=== PATIENT | male | born 1935 | race Caucasian/White ===

== ENCOUNTER 2022-01-28 10:19 | Outpatient (CLI) | payer MEDICARE, SELFPAY ==
[2022-01-28 15:49] LABS: Chloride* 103 mmol/L (96-114); Potassium* 4.7 mmol/L (3.6-5.1); Sodium* 137 mmol/L (135-149)
[2022-01-28 15:51] LABS: Alanine Aminotransferase* 27 U/L (4-50); Carbon Dioxide* 25 mmol/L (20-32); Cholesterol* 153 mg/dL (90-199); Creatinine* 1.3 mg/dL (0.5-1.5); Estimated Glomerular Filt Rate 54 ml/min
[2022-01-28 15:52] LABS: Blood Urea Nitrogen* 46 mg/dL (7-30); Glucose* 126 mg/dL (60-115); HDL Cholesterol* 38 mg/dL (>=40); LDL Cholesterol Calculated 95 mg/dL (<100); Triglycerides* 100 mg/dL (40-149)
== END 2022-01-28 10:20 | disposition home or self-care (01) ==
PROVIDERS: PCP Family Medicine; Visit Provider Family Medicine
DX: I10 Essential (primary) hypertension (principal); E11.9 Type 2 diabetes mellitus without complications; M10.9 Gout, unspecified
CPT/HCPCS: 80048; 80061; 84460

== ENCOUNTER 2022-02-14 10:43 | Outpatient (CLI) | payer MEDICARE, SELFPAY | END 2022-02-14 10:44 | disposition home or self-care (01) | PROVIDERS: PCP Family Medicine; Visit Provider Family Medicine | DX: Z95.2 Presence of prosthetic heart valve (principal); I34.0 Nonrheumatic mitral (valve) insufficiency | CPT/HCPCS: 93306 ==

== ENCOUNTER 2022-10-28 07:30 | Day surgery (SDC) | payer MEDICARE, SELFPAY ==
[2022-10-28] MEDS: SODIUM CHLORIDE 0.9 % (FLUSH) 10 ML SYRINGE IVF (07:50)
[2022-10-28] MEDS: LACTATED RINGERS 1000 ML 1,000 ML 100 ML IV (07:50)
[2022-10-28 08:02] VITALS: BP 152/91; PULSE 55; RESP 16; TEMP 36.9; O2SAT 97
[2022-10-28 08:06] VITALS: BMI 29.2
--- NOTE | 2022-10-28 08:46 | W.ANESCHARGE ---
Anesthesia Charges Start Date/Time Anesthesia Start Date: 10/28/22 Anesthesia Start Time: 08:59 Stop Date/Time Anesthesia Stop Date: 10/28/22 Anesthesia Stop Time: 10:02 Summary Extremes of Age - Over 70 or under 1: MDA
--- NOTE | 2022-10-28 08:52 | PM.GSPRC ---
Operative Note Date of procedure: 10/28/22 Pre-op diagnosis: 1. Top of the scalp lesion suspicious for basal cell carcinoma. Post-op diagnosis: Same Type of Procedure: 1. Excision of top of the scalp skin lesion. Indications: 87-year-old male was seen in clinic for evaluation of an enlarging top of the scalp skin lesion that was noticed 6 months ago. It has been increasing in size but was not painful. There was no drainage. 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 On clinical exam on the top of the left scalp there was around raised skin lesion that was approximately 1 cm in diameter. The skin scalp had limited laxity. Given patient's clinical history and enlarging nature of this lesion, this was suspicious for skin cancer. Excision in the operating room was recommended. The procedure was discussed in detail. The risks associated procedure including infection, bleeding, and lesion recurrence were all discussed with the patient, and he agreed to proceed. Procedure Description: After discussing the risks and benefits of the procedure, the patient signed informed consent.? The operative site was marked and the patient was brought to the operating room and placed on the operating table in supine position.? Care was taken to pad the patient's pressure points.?? The patient was then sedated by anesthesia.?? The operative site was then prepped and draped in the usual sterile fashion.? A time-out was then performed. The lesion was marked with a marking pen and was measuring 1.5 cm in diameter. Local anesthetic was injected at the surgical site. A vertical elliptical incision was made around the skin lesion with a scalpel. Subcutaneous tissue and dermis were dissected with cautery down to the galea. The ellipse of skin containing the suspicious lesion was excised. The ellipse of skin was measuring 8.5 x 2 cm. This was marked with a single stitch anterior and double lateral and sent to pathology. The skin flaps were developed laterally and medially with cautery. The incision was then closed in layers with interrupted 2-0 and 3-0 Vicryl sutures. The length of the incision was 8.5 cm. There was some tension in the center of the incision. The skin of the incision was then closed with a running 4-0 Monocryl stitch. In the center of the incision where there was tension, I placed 2 interrupted vertical mattress sutures using nylon. Dermabond was placed over the areas of closed skin without nylon sutures. Bacitracin was placed over the center of the incision and that was covered with Mepilex. ? The patient was then woken and transported to the recovery area in stable condition. ? The patient tolerated the procedure well. Findings: Minimal tension in the center of the incision reinforced with nylon sutures. Anesthesia: MAC and local Surgeon: Hali Hanson MD Estimated blood loss (mL): 7 Additional Specimen Information: 1. Top of the scalp skin lesion. Condition: stable Disposition: same day
[2022-10-28] MEDS: CEFAZOLIN 2 GM INJ IVP (09:03)
[2022-10-28] MEDS: BUPIVACAINE 0.5% 30 ML 3.5 ML INJECTION (09:19)
[2022-10-28] MEDS: BACITRACIN OINTMENT BULK TUBE 1 APPLIC TOPICAL (09:49)
--- NOTE | 2022-10-28 09:52 | SUR.OPER ---
PATIENT QUESTIONS ANSWERED SATISFACTORILY PREOPERATIVELY WITH AN OTORHINOLARYNGOLOGIST.? PATIENT BROUGHT TO OR #4 PER CART.? Patient positioned supine on OR #4 bed.? The perioperative?team supported arms bilaterally on arm boards.? Final approval of positioning by surgeon.?
[2022-10-28 09:59] VITALS: BP 127/78; PULSE 56; RESP 16; TEMP 36.3; O2SAT 94
--- NOTE | 2022-10-28 10:04 | P.ANES_ITS ---
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
[2022-10-28 10:15] VITALS: BP 148/84; PULSE 49; RESP 16; O2SAT 96
[2022-10-28 10:30] VITALS: BP 153/84; PULSE 50; RESP 16; O2SAT 96
[2022-10-28 11:17] VITALS: BP 159/85; PULSE 50; RESP 16; O2SAT 96
== END 2022-10-28 11:08 | disposition home or self-care (01) ==
LOC: OR 07:30
PROVIDERS: PCP Family Medicine; Visit Provider Surgery
PROC: (CPT 11626; principal; 2022-10-28 08:30)
DX: C44.41 Basal cell carcinoma of skin of scalp and neck (principal)
CPT/HCPCS: 11626; 12034; 00300; 82962; 88305; 99100; J0690; J2250; J2704; J3490; J7120

== ENCOUNTER 2023-04-06 08:44 | Outpatient (CLI) | payer MEDICARE, SELFPAY | END 2023-04-06 08:45 | disposition home or self-care (01) | LOC: NFLDREF 04-10 11:52 | PROVIDERS: PCP Family Medicine; Referring Provider Family Medicine; Visit Provider Family Medicine | DX: I10 Essential (primary) hypertension (principal); E11.9 Type 2 diabetes mellitus without complications; M10.9 Gout, unspecified | CPT/HCPCS: 80048; 80061; 84550; 85025 ==

== ENCOUNTER 2024-03-23 09:13 | Outpatient (CLI) | payer MEDICARE, SELFPAY ==
--- OUTSIDE RECORDS SUMMARY | 2024-03-23 09:16 | XMS_ITS | Clinical Summary ---
Author Organization [facility] Address [address] [place] [address] Care Team Providers Care Automatic Washer Mechanic Name Role Phone Elsewhere, Pcp Primary Care Provider Unavailabl e Source Comments Patient records contain information from all sites at [facility]. For routine questions regarding patient records, call [phone] during business hours, M-F 8:00 AM - 5:00 PM Central Time. Record requests for emergency care only can be directed to [phone] at any time.[facility] Allergies No known active allergies Medications * This document contains information received from the source organization and may not represent a complete record from that organization. allopurinol (ZYLOPRIM) 300 mg tablet Take 300 mg by mouth daily. 8 Active tamsulosin (FLOMAX) 0.4 mg 24 hr capsule Take 0.4 mg by mouth daily. 8 Active hydroCHLOROthi azide (HYDRODIURIL) 25 mg tablet Take 25 mg by mouth daily. 1 Active glimepiride (AMARYL) 2 mg tablet Take 2 mg by mouth daily with breakfast. 2 Active metoprolol tartrate (LOPRESSOR) 100 mg tablet 2 (two) times a day. 2 Active OneTouch Verio test strips 3 Active OneTouch Delica Plus Lancet 30 gauge misc 3 Active OneTouch Verio Flex meter [facility] 4 Active tobramycin-dex AMETHasone (Tobradex) 0.3-0.1 % ophthalmic suspension Administer 1 drop into the right eye 4 (four) times a day. 4 Active fluticasone propionate (FLONASE) 50 mcg/actuation nasal spray Administer 2 sprays into each nostril daily. 3 03/11/20 Discontinu ed(Therapy completed) neomycin-polym yxin B-dexameth (MAXITROL) 3.5 mg/g-10,000 unit/g-0.1 % ophthalmic ointment Apply 1 inch to right eye at bedtime. Started 05/15/22 2 03/11/20 Discontinu ed(Therapy completed) gabapentin (NEURONTIN) 100 mg capsule TAKE 1 CAPSULE(100 MG) BY MOUTH TWICE DAILY. BEGIN WITH 1 PILL DAILY FOR 3 DAYS THEN. INCREASE TO 2 TIMES DAILY 60 capsule 3 03/11/20 Discontinu ed(Therapy completed) cephalexin (KEFLEX) 500 mg capsule Take 1 capsule (500 mg total) by mouth every 6 (six) hours. 20 capsule 3 03/11/20 Discontinu ed(Therapy completed) traMADoL (ULTRAM) 50 mg tabletIndicati ons:Acute Pain Take 1 tablet (50 mg total) by mouth every 6 (six) hours as needed for pain for up to 10 doses Indications: Acute Pain. 8 tablet 3 03/11/20 Discontinu ed(Therapy completed) doxycycline (ADOXA) 50 mg tablet TAKE ONE TABLET BY MOUTH TWICE A DAY FOR 2 MONTHS 3 03/11/20 Discontinu ed(Therapy completed) benzonatate (Tessalon Perles) 100 mg capsule Take 200 mg by mouth every 8 (eight) hours. 03/11/20 Discontinu ed(Therapy completed) predniSONE (Deltasone) 20 mg tablet Take 20 mg by mouth daily. 03/11/20 Discontinu ed(Therapy completed) cefadroxil (Duricef) 500 mg capsule Take 1 capsule (500 mg total) by mouth 2 (two) times a day for 5 days. 10 capsule 4 03/16/20 Hospital, Clinic, or Other Facility Administered Medication Ordered Dose Route Frequency Start Date End Date Status lidocaine-EPINEPHrine 1%-1:200,000 injection 2-50 mL (Xylocaine w/epi)Indications:Malignant Neoplasm Of Nose Basal Cell 2 - 50 mL inj As needed 03/11/2024 03/11/20 24 Ended [id number] PHrine 0.25%-1%-1:200,000 injection 2-25 mLIndications:Malignant Neoplasm Of Nose Basal Cell 2 - 25 mL inj As needed 03/11/2024 03/11/20 24 Ended lidocaine-sodium bicarbonate (buffered) 0.9%-0.84% injection 1 mL 1 mL Ifil Once 03/11/2024 03/11/2024 Ended Active Problems Problem Noted Date Diagnosed Date 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 Keratosis Actinic (Primary Dx) Discharge Disposition: Home or Self Care 03/11/2024 8:00 AM CDT Procedure visit Department of Dermatology in [address] [phone] Jesús Bower M.D., M.S. Malignant Neoplasm Of Nose Basal Cell Discharge Disposition: Home or Self Care 03/11/2024 Ancillary Procedure Department of Dermatology 01/06/2024 Orders Only Department of Dermatology in [address] [phone] Geetha Martines M.D. Malignant Neoplasm Of Nose Basal Cell (Primary Dx) 01/05/2024 Clinical Communication Department of Dermatology in [address] [phone] Geetha Martines M.D. 01/04/2024 8:55 AM CDT Ancillary Procedure Department of Dermatology 01/04/2024 8:30 AM CDT Office Visit Department of Dermatology in [address] [place] [phone] Geetha Martines M.D. Keratosis Actinic (Primary Dx); Tumor Skin Uncertain Behavior; Nevi Multiple; Keratosis Seborrheic Discharge Disposition: Home or Self Care from Last 3 Months Family History Medical History Relation Name Comments Basal cell carcinoma Brother Kyle Zimmerman Melanoma Brother Kyle Zimmerman Skin cancer Brother Kyle Zimmerman constant care Coronary artery disease Father Sunny Dementia Mother Rosie Relation Name Status Comments Brother Kyle Zimmerman Father Sunny Mother Rosie Social History Tobacco Use Types Packs/Day Years Used Date Smoking Tobacco: Former Cigarettes 0.3 14.5 0 01/16/1957 - 07/04/1971 Smokeless Tobacco: Never Tobacco Cessation:Counseling Given: Not Answered Alcohol Use Standard Drinks/Week Comments Yes 0 (1 standard drink = 0.6 oz pure alcohol) occasional; 1 drink Q 2 months LAST: 04/2022 Social Connection and Isolat ion Panel [NHANES] Answer Date Recorded In a typical week, how many times do you talk on the phone with family, friends, or neighbors? More than three times a week 05/05/2022 How often do you get togethe r with friends or relatives? Twice a week 05/05/2022 How often do you attend chur ch or buddhist services? More than 4 times per year 05/05/2022 Do you belong to any clubs o r organizations such as islam groups, unions, fraternal or athletic groups, or school groups? No 05/05/2022 How often do you attend meet ings of the clubs or organizations you belong to? 1 to 4 times per year 05/05/2022 Marital Status Not on file 05/05/2022 AUDIT-C Answer Date Recorded Q1: How often do you have a drink containing alcohol? Monthly or less 05/05/2022 Q2: How many drinks containi ng alcohol do you have on a typical day when you are drinking? Patient does not drink Frequency of Binge Drinking Not on file 04/17 Overall Financial Resource Strain (CARDIA) Answe r Date Recorded How hard is it for you to pa y for the very basics like food, housing, medical care, and heating? Not hard at all 10/29/2020 [place] [facility] - Occupational Stress Questionnaire Answer Date Recorded Do you feel stress - tense, restless, nervous, or anxious, or unable to sleep at night because your mind is troubled all the time - these days? Not at all 10/29/2020 Exercise Vital Sign Answer Date Recorde d On average, how many days pe r week do you engage in moderate to strenuous exercise (like a brisk walk)? 4 days 05/05/2022 On average, how many minutes do you engage in exercise at this level? 40 min 05/05/2022 Hunger Vital Sign Answer Date Recorded Within the past 12 months, y ou worried that your food would run out before you got the money to buy more. Never true 10/30/19 21 Within the past 12 months, t he food you bought just didn't last and you didn't have money to get more. Never true 10/29/2020 PRAPARE - Transportation Answer Date Re corded In the past 12 months, has l ack of transportation kept you from medical appointments or from getting medications? No 04/17 In the past 12 months, has l ack of transportation kept you from meetings, work, or from getting things needed for daily living? No 05/05/2022 Housing Stability Vital Sign Answer Aaron e Recorded In the last 12 months, was t here a time when you were not able to pay the mortgage or rent on time? No 05/05/2022 In the last 12 months, how many places have you lived? 2 05/05/2022 In the last 12 months, was t here a time when you did not have a steady place to sleep or slept in a senior living (including now)? No 05/05/2022 Nutrition Answer Date Recorded On average, how many serving s of fruits and vegetables do you eat per day (serving size is equal to 1 cup or approximately the size of a tennis ball)? 0-1 05/05/2022 Dental Answer Date Recorded Dental: Regular Dentist Yes 05/05/20 Employment Answer Date Recorded Employment status Retired 05/05/2022 Education Answer Date Recorded What is the highest level of school you have completed or the highest degree you have received? Master's degree (e.g., MA, MS, uMmtaz, MEd, CHEMICAL CELL CHANGER, SABA) 09/27/2019 Sex and Gender Information Value Date Recorded Sex Assigned at Male 09/18/2018 8:37 AM CDT Legal Sex Male 10:09 PM PHOTO TECH Gender Identity Male 09/18/2018 8:37 AM CDT Sexual Orientation Straight 09/18/2018 8: 37 AM CDT Last Filed Vital Signs Vital Sign Reading Time Taken Comments Blood Pressure 139/80 03/11/2024 8:10 AM CDT Pulse 64 03/11/2024 8:10 AM CDT Temperature 36 ??C (96.8 ??F) 07/09/2022 8:31 AM MST Respiratory Rate 17 07/09/2022 8:31 AM MST Oxygen Saturation 96% 07/09/2022 8:31 AM MST Inhaled Oxygen Concentration - - Weight 92.7 kg (204 lb 5.9 oz) 07/09/2022 5:44 A M MST Height 178 cm (5' 10.08) 07/09/2022 5:44 AM MST Body Mass Index 29.26 07/09/2022 5:44 AM MST Plan of Treatment Upcoming Encounters Date Type Department Care Team (Late st Contact Info) Description 09/13/2024 1:45 PM CDT Office Visit Department of Dermatology in [address] [phone] Geetha Martines M.D. [address] [place] [phone] Discharge Disposition: Home or Self Care Health Maintenance Due Date Last Done Comments Diabetic Office Visit with Foot Exam 1935 Urine Albumin 1935 Hepatitis B Vaccines (1 of 3 - Risk 3-dose series) 1997 RSV vaccine - (32-36 weeks) or 60+ years (1 - 1-dose 75+ series) 2012 Hemoglobin A1C 11/05/2022 05/07/2022 Creatinine Level (Kidney Function Test) 05/07/2023 05/07/2022 Depression Screening (Annual PHQ-2) 05/18/2023 Fall Risk Screen (Annual) 05/18/2023 COVID-19 Vaccine ( season) 2024 04/24/2021, 06/29/2020, 06/08/2020 Influenza Vaccine (#1) 2024 03/05/2009, 2008 Dilated Eye Exam 07/08/2024 07/08/2023 DTaP,Tdap,and Td Vaccines (3 - Td or Tdap) 02/05/2032 02/04/2022, 05/01/2021, 05/27/2010 Pneumococcal vaccine (65+ years) Completed 11/30/2015, 03/05/2009 Zoster Vaccines Completed 04/14/2022, 01/17, 05/01/2021, Additional history exists HPV Vaccines Aged Out No longer eligi ble based on patient's age to complete this topic IPV Vaccines Aged Out No longer eligi ble based on patient's age to complete this topic Medical Devices Implanted Type Area Staff Anesthesiologist Device Identifier Shelf Expiration Date Model / Serial / Lot Avr Cardiac Valve Prosthesis Heart Ocular Lens-B/L Ocular Lens Bilateral : Eye Procedures Procedure Name Priority Date/Time Associated Diagnosis Comments [facility] 1-4 SITES Routine 03/11/2024 8: 00 AM CDT Malignant Neoplasm Of Nose Basal Cell DERMATOLOGY IMAGE EXAM Routine 12:00 AM CDT DERMATOLOGY IMAGE EXAM Routine 8:55 AM CDT DERMATOPATHOLOGY Routine 01/04/2024 8:49 AM CDT Tumor Skin Uncertain Behavior HEMOGLOBIN A1C, B Routine 05/07/2022 9:4 3 AM MST Carpal Tunnel Syndrome Bilateral BASIC METABOLIC PANEL, S/P Routine 05/07/2022 9:43 AM MST Carpal Tunnel Syndrome Bilateral from Last 3 Months or Most Recently Relevant to Health Maintenance Results * [facility] 1-4 sites (03/11/2024 8:00 AM CDT) Narrative Jesús Bower M.D., M.S. - 03/11/2024 8:00 AM CDT Guerline Ambriz M.D. ? 03/11/2024 ??2:24 PM PREOP INDICATION: REMOVAL. Date of Surgery: 03/11/2024 Surgeon: Jesús Bower M.D. Procurement Coordinator: Guerline Ambriz M.D. Location: [place] ?? Bldg:GO ?? Floor:16 ?? Room:[facility] Visit Type: Outpatient PostOp Diagnosis: Basal Cell Carcinoma, Nodular Anatomic Location: ??Left nasal alar rim Preoperative size: ??1.0 x 0.7 cm [facility] number: ??[id number] Indication(s) for Mohs Micrographic Surgery: anatomic location where tissue conservation is critical Procedure(s): Mohs micrographic surgery with full-thickness skin graft closure PROCEDURAL PAUSE Prior to the procedure, final verification of the patient identity and correct marked surgical site was performed. Procedural pause conducted to verify: correct patient identity, procedure to be performed and as applicable, correct side and site, correct patient position, and availability of implants, special equipment or special requirements. INFORMED CONSENT Discussed the risks, benefits, alternatives, and the necessity of other members of the healthcare team participating in the procedure. ??All questions answered and consent given. PATIENT EDUCATION Ready to learn, no apparent learning barriers were identified; learning preferences include listening. ??Explained diagnosis and treatment plan; patient expressed understanding of the content. Preoperative medications: None The anesthesia used was 1% lidocaine and 0.25% bupivacaine with 1:200,000 epinephrine. ??The skin was prepped in a sterile fashion with Hibiclens. Basal Cell Carcinoma was noted in stage 1 which required an additional stage, stage 2 was clear of tumor. Histologic tumor-free margins were obtained in 2 stages (1; 1 blocks) by standard Mohs micrographic techniques with the Mohs surgeon performing both the surgery and pathology. The final defect depth was down to level of: fibrofatty tissue. Postoperative size: ??1.2 x 0.9 cm. Anesthesia with 1% lidocaine with 1:200,000 epinephrine and another sterile prep were performed. ??To avoid anatomical distortion, a template was made of the defect, and a full-thickness skin graft was carefully planned and harvested from the right conchal bowl. ??The graft was trimmed to fit the defect. ??After hemostasis was obtained with electrocoagulation, the graft was sutured into place with 5-0 fast gut skin sutures skin sutures. ?? The donor area was allowed to heal by secondary intention. ??Final graft size: ??1.3 x 1.0 cm. ??Estimated blood loss: Minimal. ??Complications: None. ??Wound care: Routine. Postoperative medications: Antibiotics - Duricef 500 mg BID x 5 days us Geetha Martines M.D. DERM PROCEDURE ORDERABLES Fi nal Result * nose, left ala 23 Mohs micrographic surgery-Dermatology Image Exam (03/11/2024 12:00 AM CDT) Only the most recent of2 resultswithin the time period is included. Narrative IIWY - 03/11/2024 3:01 PM CDT This order has been created and auto-finalized to support the import of images acquired without order. The clinical documentation to support these images can be found on the encounter that produced images. us Provider Not In System IMG NON RAD IMAGING PROCE MIRA Final Result [facility] NA * Dermatopathology (01/04/2024 8:49 AM CDT) 01/05/2024 11:13 AM CDT ECLR Report Electronically Signed By Josh Cabral M.D. I verify that I have examined all relevant slides/materi als for the specimen(s) and rendered or confirmed the diagnosis. 01/05/2024 11:13 AM CDT ECLR Gross Description Received labeled nose above left nasal alar rim is a 0.7 cm in diameter and less than 0.1 cm in thickness disc-shaped portion of skin.There is a diffusely roughened area identified on the skin surface. ??The specimen is bisected. All submitted in cassette A1. ??[id number] 01/05/2024 11:13 AM CDT ECLR Specimen Source Above left nasal alar rim shave biopsy 01/05/2024 11:13 AM CDT ECLR Clinical Information R/O BCC vs irritated SK 01/05/2024 11:13 AM CDT ECLR Interpretation FINAL DIAGNOSIS Skin, above left nasal alar rim, shave biopsy: ??Basal cell carcinoma, nodular type. Digital imaging was used in the diagnostic assessment of this case. 01/05/2024 11:13 AM CDT ECLR Skin (Nose.) 01/04/2024 8:49 AM CDT Geetha Martines M.D. LAB PATH DERM ORDERABLES Fin al Result Performing Organization Address City/[facility]/[place] Co de Phone Number [facility] [address] [place] [id number], [facility] ECLR [address] [place] [phone] * (ABNORMAL) Hemoglobin A1c (05/07/2022 9:43 AM [facility]) Hemoglobin A1c, B 6.4(H) 4.2 - 5.6 % 05/07/2022 10:24 AM [facility] Comment: Hemoglobin A1c values of 5.7-6.4 percent indicate an increased risk for developing diabetes mellitus. In diabetic patients, HbA1c goals should be discussed with healthcare provider. Blood (Blood, Venous) 05/07/2022 9:43 AM [facility] 05/07/2022 10:08 AM [facility] Bennett Denise M.D. LAB BLOOD ADD-ON Final Resul t Performing Organization Address City/[facility]/ZIP Co de Phone Number [facility] [address] [address], [facility] [address] [address] * (ABNORMAL) Basic Metabolic Panel (05/07/2022 9:43 AM [facility]) Potassium, S 4.3 3.6 - 5.2 mmol/L 05/07/2022 11:02 AM MST [facility] Sodium, S 138 135 - 145 mmol/L 05/07/2022 11:02 AM MST [facility] Chloride, S 102 98 - 107 mmol/L 05/07/2022 11:02 AM MST [facility] Bicarbonate, S 28 22 - 29 mmol/L 05/07/2022 11:02 AM MST [facility] Anion Gap 8 7 - 15 05/07/2022 11:02 AM MST [facility] BUN (Blood Urea Nitrogen), S 34.2(H) 8.0 - 24.0 mg/dL 05/07/2022 11:02 AM MST [facility] Creatinine 1.29 0.74 - 1.35 mg/dL 05/07/2022 11:02 AM MST [facility] Estimated GFR (eGFR) 55(L) >=60 mL/min/BSA 05/07/2022 11:02 AM MST [facility] Comment: Estimated GFR calculated using the 2020 CKD_EPI creatinine equation. Calcium, Total, S 9.5 8.8 - 10.2 mg/dL 05/07/2022 11:02 AM MST [facility] Glucose, S 195(H) 70 - 140 mg/dL 05/07/2022 11:02 AM MST [facility] Blood (Blood, Venous) 05/07/2022 9:43 AM MST 05/07/2022 10:47 AM [facility] Bennett Denise M.D. LAB BLOOD ADD-ON Final Resul t [facility] [address] [address], [facility] [address] [address] from Last 3 Months or Most Recently Relevant to Health Maintenance Insurance [facility] Care Teams Automatic Washer Mechanic Relationship Specialty Start Date End Date Elsewhere, Pcp PCP - General Internal Medicine 07/09/22
--- OUTSIDE RECORDS SUMMARY | 2024-03-23 09:16 | XMS_ITS | Encounter Summary ---
Author Organization [facility] Address [address] [place] [address] Care Team Providers Care Pie Crimping Machine Operator Name Role Phone Elsewhere, Pcp Primary Care Provider Unavailabl e Encounter Details Date Type Department Care Team (Late st Contact Info) Description 03/11/2024 Ancillary Procedure Department of Dermatology Social History Tobacco Use Types Packs/Day Years Used Date Smoking Tobacco: Former Cigarettes 0.3 14.5 0 01/16/1957 - 07/04/1971 Smokeless Tobacco: Never Alcohol Use Standard Drinks/Week Comments Yes 0 [...] 05/05/2022 How often do you attend chur or scientologist services? More than 4 times per year [...] you are drinking? Patient does not drink 2 Frequency of Binge Drinking Not on file 04/17 Overall Financial Resource Strain (CARDIA) Answe r Date Recorded How hard is it for you to pa y for the very basics like food, housing, medical care, and heating? Not hard at all 10/29/2020 [facility] [place] of Occupat ional Health - Occupational Stress [...] to sleep or slept in a senior care (including now)? No 05/05/2022 Nutrition Answer Date [...] have received? Master's degree (e.g., MA, MS, Mumtaz, MEd, RETAIL PARTS PROFESSIONAL, SABA) 09/27/2019 Sex and Gender Information Value Date Recorded Sex Assigned at Male 09/18/2018 8:37 AM CDT Legal Sex Male 10:09 PM PRODUCT DEVELOPMENT CONSULTANT Gender Identity Male 09/18/2018 8:37 AM CDT Sexual Orientation Straight 09/18/2018 8: 37 AM CDT documented as of this encounter Plan of Treatment Upcoming Encounters Date Type Department Care Team (Late st Contact Info) Description 09/13/2024 1:45 PM CDT Office Visit Department of Dermatology in [address] [phone] Geetha Martines M.D. [address] [place] [phone] Discharge Disposition: Home or Self Care documented as of this encounter Procedures Procedure Name Priority Date/Time Associated Diagnosis Comments DERMATOLOGY IMAGE EXAM Routine 03/11/2024 12:00 AM CDT documented in this encounter Results * nose, left ala 23 Mohs micrographic surgery-Dermatology Image Exam (03/11/2024 12:00 AM CDT) Narrative IIMS - 03/11/2024 3:01 PM CDT This order has been created and auto-finalized to support the import of images acquired without order. The clinical documentation to support these images can be found on the encounter that produced images. us Provider Not In System IMG NON RAD IMAGING PROCE DURES Final Result IIMS NA documented in this encounter Visit Diagnoses Not on filedocumented in this encounter Care Teams Pie Crimping Machine Operator Relationship Specialty Start Date End Date Elsewhere, Pcp PCP - General Internal Medicine 07/09/22 documented as of this encounter
--- OUTSIDE RECORDS SUMMARY | 2024-03-23 09:16 | XMS_ITS ---
Author Organization [facility] Address [address] [place] [address] Care Team Providers Care Hay Buckler Name Role Phone Unavailable Unavailable Unavailable Surgery Details Not on file Complications Check Surgery Details section. Procedure Estimated Blood Loss Check Surgery Details section. Procedure Findings Check Surgery Details section. Procedure Specimens Taken Check Surgery Details section.
--- OUTSIDE RECORDS SUMMARY | 2024-03-23 09:16 | XMS_ITS | Encounter Summary ---
Author Organization [facility] Address [address] [place] [address] Care Team Providers Care Dry Cleaning Teacher Name Role Phone Elsewhere, Pcp Primary Care Provider Unavailabl e Reason for Referral * Outpatient (Routine) - Authorized Specialty Diagnoses / Procedures Referred By Sherie paredes Referred To Contact Dermatology Geetha Martines M.D. [address] [place] [phone] Phone: tel: fax: [facility] Region Referral ID Status Reason Start Date Expiration Date V isits Requested Visits Authorized [id number] Authorized 03/15/2024 09/14/2025 1 1 Reason for Visit * Reason Comments Follow-up * Outpatient (Routine) - Closed Specialty Diagnoses / Procedures Referred By Sherie paredes Referred To Contact Dermatology Geetha Martines M.D. [address] [place] [phone] Phone: tel: fax: [facility] Region Referral ID Status Reason Start Date Expiration Date Visits Re quested Visits Authorized [id number] Closed 01/04/2024 07/05/2025 1 1 Encounter Details Date Type Department Care Team (Late st Contact Info) Description 03/15/2024 8:30 AM CDT Office Visit Department of Dermatology in [address] [phone] Geetha Martines M.D. [address] [place] [address] Keratosis Actinic (Primary Dx) Discharge Disposition: Home or Self Care Social History Tobacco Use Types Packs/Day Years [...] week 05/05/2022 How often do you attend [facility] or islam services? More than 4 times per year 05/05/2022 Do you belong to any clubs o r organizations such as quaker groups, unions, fraternal or athletic groups, or [...] and heating? Not hard at all 10/29/2020 [facility] [place] of Occupat ional Health - Occupational Stress [...] place to sleep or slept in a intermediate (including now)? No 05/05/2022 Nutrition Answer Date Recorded On average, how many serving s of fruits and vegetables do you eat per day (serving size is equal to 1 cup or approximately the size of a tennis ball)? 0-1 05/05/2022 Dental Answer Date Recorded Dental: Regular Dentist Yes 05/05/20 22 Employment Answer Date Recorded Employment status Retired 05/05/2022 Education Answer Date Recorded What is the highest level of school you have completed or the highest degree you have received? Master's degree (e.g., MA, MS, Mumtaz, MEd, RESIDENTIAL SALES, SABA) 09/27/2019 Sex and Gender Information Value Date Recorded Sex Assigned at Male 09/18/2018 8:37 AM CDT Legal Sex Male 10:09 PM [facility] Gender Identity Male 09/18/2018 8:37 AM CDT Sexual Orientation Straight 09/18/2018 8: 37 AM CDT documented as of this encounter Consult Notes * Geetha Martines M.D. - 03/15/2024 8:30 AM CDT CHIEF COMPLAINT/REASON FOR VISIT Recheck skin lesions HISTORY OF PRESENT ILLNESS Entire note and visit done with the help of a ux ui designer Mr. Franklyn Zimmerman is a pleasant 88 y.o. male who presents today for recheck of skin lesions on the face and scalp. 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 I last evaluated Ms. Zimmerman, on 01/04/2024, at which time there was no clinical evidence of recurrence of skin cancer. A total of 49 actinic keratoses on the scalp, face, left dorsal hand, and left forearm were treated with liquid nitrogen cryotherapy. I particularly discussed potentially using Efudex cream during the fall or winter months, but he was not interested at that time. Shave biopsy of the nose (above right nasal alar rim) was performed after photographs were taken. 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 Bower/Pb. Today, he reports he would like his scalp, face, arms and hands. He reports he and his will betraveling to [place], [place] for the winter soon. No Known Allergies PAST DERMATOLOGIC HISTORY Left frontal scalp: History of melanoma in situ, recently diagnosed at [place], status post Mohssurgery on 12/23/[address] Bower at [facility] Left arm: History of invasive well-differentiated squamous cell carcinoma, status post excision in [address] Hassan at [facility] (Plastic Surgery) Mid-posterior neck and right scapula: History of nodular basal cell carcinoma x 2, status post excision in [address] Hassan at [facility] (Plastic Surgery) Left shoulder: History of superficial basal cell carcinoma, status post excision in [address] Hassan at [facility] (Plastic Surgery) Left jawline and left islam: History of nodular basal cell carcinoma x 2, status post Mohs surgeries on 12/26/[address] Maldonado at [facility] Left shoulder: Nodular and superficial basal cell carcinoma, status post curettage and cryotherapy on 02/05/[address] Martines at [facility] Right nasal ala: History of basal cell carcinoma, status post Mohs surgery on 03/27/[address] Pardo [facility] Scalp: History of squamous cell carcinoma, status post Mohs surgery on 12/23/[address] Bower at [facility] Left nasal alar rim, nodular basal cell carcinoma, status post Mohs, 03/11/2024, by Dr. Bower at [facility] FAMILY DERMATOLOGIC HISTORY Negative for melanoma SYSTEMS REVIEW The patient denies unintended weight loss, fevers, chills, night sweats, headache, cough, bloody sputum, shortness of breath, abdominal pain, nausea, numbness/weakness, swollen glands, bone pain, or changing pigmented skin lesions. PHYSICAL EXAM Skin: I have performed a limited exam of the scalp, face, arms and hands. Examination of the scalp (x10), right forehead (x2), left ear helix (x2), right forearm (x2), and left forearm (x3) reveal red macules with overlying adherent scale. Examination of the left nasal alar rim was covered with a surgical bandage, which was not removed. IMPRESSION/REPORT/PLAN #1 Scalp, right forehead, left ear helix, and right forearm: Actinic keratoses x19 Actinic keratoses are pre-cancerous skin growths caused by sun exposure. Treatment is recommended. A total of 19 actinic keratoses were treated with liquid nitrogen. CONSENT Discussed the risks, benefits, alternatives, and the necessity of other members of the healthcare team participating in the procedure. All questions answered and consent given. PROCEDURE INFORMATION Given the precancerous nature of this lesion(s), treatment is medically indicated. After discussionof the risks, benefits and alternatives to treatment with cryotherapy, informed consent was obtained. We treated a total of 19 lesion(s) with two 10-second freeze-thaw cycles of liquid nitrogen cryotherapy. The patient tolerated the procedure well. Aftercare instructions were provided in written and verbal form to the patient. Should any of these lesions recur, the patient should return for biopsy or further evaluation. Follow up in 1-2 months for recheck if these areas do not complete resolve. Follow-up appointment will be ordered for return in 6 months PATIENT EDUCATION Ready to learn. No apparent learning barriers were identified. Learning preferences include listening. Explained diagnosis and treatment plan; patient/guardian of patient expressed understanding of the content. This document serves as a record of services personally performed by Dr. Martines. It was created ontheir behalf by Gerda Simpson, a trained electromedical equipment technician. The creation of this record is based on the scribe remotely listening to the visit and the provider's statements to them. This document has beenchecked and approved by the attending provider. Scribed for Geetha Martines M.D. by Gerda Simpson, on 03/14/2024, 7:30 AM CDT. documented in this encounter Miscellaneous Notes * Addendum Note - Minerva Dumas R.N. - 03/15/2024 8:30 AM CDTAddended by: MINERVA DUMAS on: 03/15/2024 10:02 AM Modules accepted: Orders documented in this encounter Plan of Treatment Upcoming Encounters Date Type Department Care Team (Late st Contact Info) Description 09/13/2024 1:45 PM CDT Office Visit Department of Dermatology in [address] [phone] Geetha Martines M.D. [address] [place] [phone] Discharge Disposition: Home or Self Care Scheduled Referrals Name Type Priority Associated Diagnoses Order Schedule Dermatology office visit (clinic) Outpatient Referral Routine Expected: 09/13/2024 (Approximate), Expires: 06/15/2025 documented as of this encounter Visit Diagnoses Diagnosis Keratosis Actinic- Primary documented in this encounter Care Teams Dry Cleaning Teacher Relationship Specialty Start Date End Date Elsewhere, Pcp PCP - General Internal Medicine 07/09/22 documented as of this encounter
--- OUTSIDE RECORDS SUMMARY | 2024-03-23 09:16 | XMS_ITS | Referral Summary ---
Author Organization [facility] Address [address] [place] [address] Care Team Providers Care Head Animal Keeper Name Role Phone Elsewhere, Pcp Primary Care Provider Unavailabl e Source Comments Patient records contain information from all sites at [facility]. For routine questions regarding patient records, call [phone] during business hours, M-F 8:00 AM - 5:00 PM Central Time. Record requests for emergency care only can be directed to [phone] at any time.[facility] Encounters Date Type Department Care Team Description 03/15/2024 8:30 AM CDT Office Visit Department of Dermatology in [address] [phone] Geetha Martines M.D. Keratosis Actinic (Primary Dx) Discharge Disposition: Home or Self Care 03/11/2024 Ancillary Procedure Department of Dermatology 03/11/2024 8:00 AM CDT Procedure visit Department of Dermatology in [place], [place] [address] [place] [phone] Jesús Bower M.D., M.S. Malignant Neoplasm Of Nose Basal Cell Discharge Disposition: Home or Self Care 01/06/2024 Orders Only Department of Dermatology in [place], [place] [address] [place] [phone] Geetha Martines M.D. Malignant Neoplasm Of Nose Basal Cell (Primary Dx) 01/05/2024 Clinical Communication Department of Dermatology in [place], [place] [address] [place] [address] Geetha Martines M.D. 01/04/2024 8:55 AM CDT Ancillary Procedure Department of Dermatology 01/04/2024 8:30 AM CDT Office Visit Department of Dermatology in [address] [phone] Geetha Martines M.D. Keratosis Actinic (Primary Dx); Tumor Skin Uncertain Behavior; Nevi Multiple; Keratosis Seborrheic Discharge Disposition: Home or Self Care from Last 3 Months Allergies No known active allergies Medications * [...] Active OneTouch Delica Plus Lancet [facility] 3 Active OneTouch Verio Flex meter [facility] 4 Active tobramycin-dex AMETHasone (Tobradex) 0.3-0.1 % ophthalmic suspension Administer 1 drop into the right eye 4 (four) times a day. 4 Active fluticasone propionate (FLONASE) 50 mcg/actuation nasal spray Administer 2 sprays into each nostril daily. 3 03/11/20 Discontinu ed(Therapy completed) neomycin-polym yxin B-dexameth (MAXITROL) 3.5 mg/g-10,000 unit/g-0.1 % ophthalmic ointment Apply 1 inch to right eye at bedtime. 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 More than 4 times per year 05/05/2022 Do you belong to any clubs o r organizations such as roman catholic groups, unions, fraternal or athletic groups, or [...] and heating? Not hard at all 10/29/2020 [facility] [place] of Occupat ional Health - Occupational Stress [...] place to sleep or slept in a chcf (including now)? No 05/05/2022 Nutrition Answer Date [...] Master's degree (e.g., MA, MS, Mumtaz, MEd, CELLAR PACKER, SABA) 09/27/2019 Sex and Gender Information Value Date Recorded Sex Assigned at Male 09/18/2018 8:37 AM CDT Legal Sex Male 10:09 PM MANAGEMENT NURSE RN Gender Identity Male 09/18/2018 8:37 AM CDT [...] Body Mass Index 29.26 07/09/2022 5:44 AM [facility] Plan of Treatment Upcoming Encounters Date Type Department Care Team (Late st Contact Info) Description 09/13/2024 1:45 PM CDT Office Visit Department of Dermatology in [address] [phone] Geetha Martines M.D. [address] [place] [phone] Discharge Disposition: Home or Self Care Medical Devices Implanted Type Area Upsetter Setter Up Device Identifier Shelf Expiration Date Model / Serial / Lot Avr Cardiac Valve Prosthesis Heart Ocular Lens-B/L Ocular Lens Bilateral : Eye Procedures Procedure Name Priority Date/Time Associated Diagnosis Comments [facility] 1-4 SITES Routine 03/11/2024 8: [...] Recently Relevant to Health Maintenance Results * [facility] 1-4 sites (03/11/2024 8:00 AM CDT) Narrative Jesús Bower M.D., M.S. - 03/11/2024 8:00 AM CDT Guerline Ambriz M.D. ? 03/11/2024 ??2:24 PM PREOP INDICATION: REMOVAL. Date of Surgery: 03/11/2024 Surgeon: Jesús Bower M.D. [place] Singer: Guerline Ambriz M.D. Location: [place] ?? [facility]: ?? Floor:16 ?? Room:[facility] Visit Type: Outpatient PostOp Diagnosis: Basal Cell Carcinoma, Nodular Anatomic Location: ??Left nasal alar rim Preoperative size: ??1.0 x 0.7 cm [facility] number: ??23 Indication(s) for Mohs Micrographic Surgery: [...] resultswithin the time period is included. Narrative IIMS - 03/11/2024 3:01 PM CDT This order has been created and auto-finalized to support the import of images acquired without order. The clinical documentation to support these images can be found on the encounter that produced images. us Provider Not In System IMG NON RAD IMAGING PROCE DURES Final Result IIVT NA * Dermatopathology (01/04/2024 8:49 AM CDT) [...] ECLR Skin (Nose.) 01/04/2024 8:49 AM CDT us Geetha Martines M.D. LAB PATH DERM ORDERABLES Fin al Result Performing Organization Address City/[facility]/ZIP Co de Phone Number [facility] [address] [place] [phone], [facility] ECLR [address] [place] [phone] * (ABNORMAL) Hemoglobin A1c (05/07/2022 9:43 AM [facility]) Hemoglobin A1c, B 6.4(H) 4.2 - 5.6 % 05/07/2022 10:24 AM [facility] Comment: Hemoglobin A1c values of 5.7-6.4 percent indicate an increased risk for developing diabetes mellitus. In diabetic patients, HbA1c goals should be discussed with healthcare provider. Blood (Blood, Venous) 05/07/2022 9:43 AM [facility] 05/07/2022 10:08 AM [facility] Bennett Denise M.D. LAB BLOOD ADD-ON Final Resul t [facility] [address] [place] [address], [place] [facility] [address] [address] * (ABNORMAL) Basic Metabolic Panel (05/07/2022 9:43 AM [facility]) [facility] Potassium, S 4.3 3.6 - 5.2 mmol/L 05/07/2022 11:02 AM [facility] [place] Sodium, S 138 135 - 145 mmol/L 05/07/2022 11:02 AM [facility] Chloride, S 102 98 - 107 mmol/L 05/07/2022 11:02 AM [facility] Bicarbonate, S 28 22 - 29 mmol/L 05/07/2022 11:02 AM [facility] Anion Gap 8 7 - 15 05/07/2022 11:02 AM [facility] BUN (Blood Urea Nitrogen), S 34.2(H) 8.0 - 24.0 mg/dL 05/07/2022 11:02 AM [facility] Creatinine 1.29 0.74 - 1.35 mg/dL 05/07/2022 11:02 AM [facility] Estimated GFR (eGFR) 55(L) >=60 mL/min/BSA 05/07/2022 11:02 AM [facility] Comment: Estimated GFR calculated using the 2020 CKD_EPI creatinine equation. Calcium, Total, S 9.5 8.8 - 10.2 mg/dL 05/07/2022 11:02 AM [facility] Glucose, S 195(H) 70 - 140 mg/dL 05/07/2022 11:02 AM [facility] Blood (Blood, Venous) 05/07/2022 9:43 AM [facility] 05/07/2022 10:47 AM [facility] Bennett Denise M.D. LAB BLOOD ADD-ON Final Resul t [facility] [address] [address], [facility] [address] [address] from Last 3 Months or Most Recently Relevant to Health Maintenance Insurance A[employer] Care Teams Head Animal Keeper Relationship Specialty Start Date End Date Elsewhere, Pcp PCP - General Internal Medicine 07/09/22
--- OUTSIDE RECORDS SUMMARY | 2024-03-23 09:16 | XMS_ITS | Clinical Summary ---
Author Organization [facility] Address [address] [place] [address] Care Team Providers Care Bus Driver/Monitor Name Role Phone Found, No Pcp MD Primary Care Provider Unavailab le Source Comments You are receiving this document as you are listed as the primary care provider,follow-up provider, or the patient has been referred to you for consultation.This is in compliance with the Medicare and[facility] Hospital[facility] EHR Incentive Program,which states Providers who transition their patient to another setting of careor provider of care or refers their patient to another provider of care shouldprovide summary care record for each transition of care or referral. [employer] Allergies No known active allergies Medications Medication Sig Dispensed Refills Start Date End Date Status ALLOPURINOL OR Active metoprolol tartrate (LOPRESSOR) 12.5 mg Take 12.5 mg by mouth two times a day. Active TAMSULOSIN HCL OR Active metoprolol tartrate (LOPRESSOR) 100 MG tablet 08/19/2019 Active tamsulosin (FLOMAX) 0.4 MG CAPS capsule 09/09/2019 Active hydroCHLOROthiazide (ORETIC) 25 MG tablet 09/26/2020 Act [facility] Social History Tobacco Use Types Packs/Day Years Used Date Smoking Tobacco: Former Cigarettes Q uit: 03/24/1968 Smokeless Tobacco: Never Alcohol Use Standard Drinks/Week Comments No 0 (1 standard drink = 0.6 oz pur e alcohol) Sex and Gender Information Value Date Recorded Sex Assigned at Not on file Gender Identity Not on file Sexual Orientation Not on file Last Filed Vital Signs Vital Sign Reading Time Taken Comments Blood Pressure - - Pulse - - Temperature 36.6 ??C (97.8 ??F) 11/08/2020 11:49 AM C DT Respiratory Rate - - Oxygen Saturation - - Inhaled Oxygen Concentration - - Weight 86.2 kg (190 lb) 11/08/2020 11:49 AM CDT Height 180.3 cm (5' 11) 11/08/2020 11:49 AM CDT Body Mass Index 26.5 11/08/2020 11:49 AM CDT Plan of Treatment Health Maintenance Due Date Last Done Comments Adult Preventive Visit 10/14/1953 Zoster/Shingles (2 of 3) 11/12/2007 09/17/2007 DTaP/Tdap/Td (1 - Tdap) 05/28/2010 05/27/2010 RSV (1 - 1-dose 75+ series) 2012 COVID-19 Vaccine (2023-2 5 season) 2024 Influenza (#1) 2024 03/05/2009 Pneumococcal 65+ Yrs Completed 11/30/2015, 03/05/2009 HepA Aged Out No longer eligi ble based on patient's age to complete this topic HepB Aged Out No longer eligi ble based on patient's age to complete this topic Hib Aged Out No longer eligi ble based on patient's age to complete this topic IPV (Polio) Aged Out No longer eligi ble based on patient's age to complete this topic RSV Aged Out No longer eligi ble based on patient's age to complete this topic MCV4 Aged Out No longer eligi ble based on patient's age to complete this topic Care Teams Bus Driver/Monitor Relationship Specialty Start Date End Date Found, No Pcp, [address] [place] [address] PCP - General 03/29/18
--- OUTSIDE RECORDS SUMMARY | 2024-03-23 09:16 | XMS_ITS | Encounter Summary ---
Author Organization [facility] Address [address] [place] [address] Care Team Providers Care Hatch Tender Name Role Phone Elsewhere, Pcp Primary Care Provider Unavailabl e Reason for Visit * Outpatient (Routine) - Closed Specialty Diagnoses / Procedures Referred By Contsun t Referred To Contact Dermatology Diagnoses Malignant Neoplasm Of Nose Basal Cell Procedures XIMENA MOHS 1-4 sites Geetha Martines M.D. [address] [place] [address] Phone: tel: fax: [facility] Referral ID Status Reason Start Date Expiration Date Visits Re quested Visits Authorized [id number] Closed 01/06/2024 01/05/2025 1 1 Encounter Details Date Type Department Care Team (Latest Contact Info) Description 03/11/2024 8:00 AM CDT Procedure visit Department of Dermatology in [place], [place] [address] [place] [address] Jesús Bower M.D., M.S. [address] [place] [address] Malignant Neoplasm Of Nose Basal Cell Discharge Disposition: Home or Self Care Social [...] often do you attend chur ch or congregation services? More than 4 times per year 05/05/2022 Do you belong to any clubs o r organizations such as moravian groups, unions, fraternal or athletic groups, or [...] and heating? Not hard at all 10/29/2020 [facility] of Occupat ional Health - Occupational Stress [...] place to sleep or slept in a fci (including now)? No 05/05/2022 Nutrition Answer Date [...] Master's degree (e.g., MA, MS, Mumtaz, MEd, MEDICAL ASSOCIATE, SABA) 09/27/2019 Sex and Gender Information Value Date Recorded Sex Assigned at Male 09/18/2018 8:37 AM CDT Legal Sex Male 10:09 PM FISHER SEAL Gender Identity Male 09/18/2018 8:37 AM CDT Sexual Orientation Straight 09/18/2018 8: 37 AM CDT documented as of this encounter Last Filed Vital Signs Vital Sign Reading Time Taken Comments Blood Pressure 139/80 03/11/2024 8:10 AM CDT Pulse 64 03/11/2024 8:10 AM CDT Temperature - - Respiratory Rate - - Oxygen Saturation - - Inhaled Oxygen Concentration - - Weight - - Height - - Body Mass Index - - documented in this encounter Procedure Notes * Guerline Ambriz M.D. - 03/11/2024 8:00 AM CDTAssociated Order(s): XIMENA [facility] 1-4 SITES PREOP INDICATION: REMOVAL. Date of Surgery: 03/11/2024 Surgeon: Jesús Bower M.D. Weight Control Engineer: Guerline Ambriz M.D. Location: [facility]: Floor:16 Room:[facility] Visit Type: Outpatient PostOp Diagnosis: Basal Cell Carcinoma, Nodular Anatomic Location: Left nasal alar rim Preoperative size: 1.0 x 0.7 cm [facility] number: 23 Indication(s) for Mohs Micrographic Surgery: anatomic location where tissue conservation is critical Procedure(s): Mohs micrographic surgery with full-thickness skin graft closure PROCEDURAL PAUSE Prior to the procedure, final verification of the patient identity and correct marked surgical sitewas performed. Procedural pause conducted to verify: correct patient identity, procedure to be performed and as applicable, correct side and site, correct patient position, and availability of implants, special equipment or special requirements. INFORMED CONSENT Discussed the risks, benefits, alternatives, and the necessity of other members of the healthcare team participating in the procedure. All questions answered and consent given. PATIENT EDUCATION Ready to learn, no apparent learning barriers were identified; learning preferences include listening. Explained diagnosis and treatment plan; patient expressed understanding of the content. Preoperative medications: None The anesthesia used was 1% lidocaine and 0.25% bupivacaine with 1:200,000 epinephrine. The skin wasprepped in a sterile fashion with Hibiclens. Basal Cell Carcinoma was noted in stage 1 which required an additional stage, stage 2 was clear of tumor. Histologic tumor-free margins were obtained in 2 stages (1; 1 blocks) by standard Mohs micrographictechniques with the Mohs surgeon performing both the surgery and pathology. The final defect depth was down to level of: fibrofatty tissue. Postoperative size: 1.2 x 0.9 cm. Anesthesia with 1% lidocaine with 1:200,000 epinephrine and another sterile prep were performed. Toavoid anatomical distortion, a template was made of the defect, and a full-thickness skin graft wascarefully planned and harvested from the right conchal bowl. The graft was trimmed to fit the defect. After hemostasis was obtained with electrocoagulation, the graft was sutured into place with 5-0 fast gut skin sutures skin sutures. The donor area was allowed to heal by secondary intention. Finalgraft size: 1.3 x 1.0 cm. Estimated blood loss: Minimal. Complications: None. Wound care: Routine. Postoperative medications: Antibiotics - Duricef 500 mg BID x 5 days Cosigned by Jesús Bower M.D., M.S. at 03/11/2024 4:00 PM CDT documented in this encounter Consult Notes * Guerline Ambriz M.D. - 03/11/2024 8:00 AM CDT DERMATOLOGIC SURGERY CONSULTATION NOTE PATIENT NAME: Franklyn Zimmerman DATE OF : 1935, 88 y.o. DATE: 03/11/2024 STAFF PHYSICIAN: Dr. Jesús Bower M.D., M.S. SUBJECTIVE CHIEF COMPLAINT/REASON FOR VISIT Basal Cell Carcinoma, Nodular HISTORY OF PRESENT ILLNESS Franklyn Zimmerman is a 88 y.o. male presents today, accompanied by his , in referral from Geetha Martines M.D. for treatment of the following: Pathology result: Skin, above left nasal alar rim, shave biopsy: Basal cell carcinoma, nodular type. PERTINENT DERMATOLOGIC REVIEW OF SYSTEMS: The dermatologic surgery preoperative sheet was reviewed today in detail. Pertinent positives include a history of previous skin cancer, heart disease, diabetes, controlled hypertension. CURRENT MEDICATIONS The medications for today's visit were reviewed OBJECTIVE VITALS SIGNS BP 139/80 Pulse 64 PHYSICAL EXAMINATION General: well appearing male in no acute distress Skin: Focused examination of the surgical site(s) performed and revealed: Erythematous scar(s), consistent with prior biopsy site(s), on the left nasal ala rim No other concerning lesions in the areas examined. DIAGNOSTICS REVIEW OF MEDICAL CHART: A review of the patient's medical chart and any referral form(s) was performed. I personally reviewed the patient's histopathology from the biopsy slides, and my impression is listed below in the assessment and plan. ASSESSMENT / PLAN #1 Basal Cell Carcinoma, Nodular, left nasal alar rim The patient is here today for definitive treatment of the above tumor. We reviewed the diagnosis(es)/indication(s) and treatment options. Based on appropriate use criteria, decision was made to treatwith Mohs micrographic surgery given anatomic location where tissue conservation is critical. We rev iewed associated risks, benefits, and alternatives. Risks included bleeding, infection, scar, recurrence, large wound, dehiscence, and sensation loss. Natural history of scar and expectations reviewed. After discussion, the patient consented to proceed. All questions were answered. After curettage of the clinically apparent tumor, the tumor deep and peripheral margins were clear after 2 stages of Mohs micrographic excision. We had discussion regarding reconstructive options, including flap vs graft. After discussion, patient elected for closure by graft. Please refer to the operative note and associated Mohs map for complete details. Suture removal: None (all sutures used are dissolvable) Post-operative medications: Antibiotics - Duricef 500 mg BID x 5 days Dermatology follow-up: Yearly for total body skin exam Guerline Ambriz M.D. Mohs Surgery Fellow Cosigned by Jesús Bower M.D., M.S. at 03/11/2024 4:00 PM CDT Associated attestation - Jesús Bower M.D., M.S. - 03/11/2024 4:00 PM CDT Assisted by: Dr. Ambriz and Ms. Ta. I have heard the history and seen and examined the patient with him/her. I agree with the impression and plan as discussed in his/her note. I participated in the entire case, including outlining of the Mohs margins, review of the slides, and design and execution of the repair. For further details, please refer to the clinic note and operative note. documented in this encounter Plan of Treatment Upcoming Encounters Date Type Department Care Team (Late st Contact Info) Description 09/13/2024 1:45 PM CDT Office Visit Department of Dermatology in [address] [address] Geetha Martines M.D. [address] [place] [address] Discharge Disposition: Home or Self Care documented as of this encounter Procedures Procedure Name Priority Date/Time Associated Diagnosis Comments XIMENA MOHS 1-4 SITES Routine 03/11/2024 8: 00 AM CDT Malignant Neoplasm Of Nose Basal Cell documented in this encounter Results * XIMENA [facility] 1-4 sites (03/11/2024 8:00 AM CDT) Narrative Jesús Bower M.D., M.S. - 03/11/2024 8:00 AM CDT Guerline Ambriz M.D. ? 03/11/2024 ??2:24 PM PREOP INDICATION: REMOVAL. Date of Surgery: 03/11/2024 Surgeon: Jesús Bower M.D. Weight Control Engineer: Guerline Ambriz M.D. Location: [facility] ?? dg: ?? Floor:16 ?? Room:[facility] Visit Type: Outpatient PostOp Diagnosis: Basal Cell Carcinoma, Nodular Anatomic Location: ??Left nasal alar rim Preoperative size: ??1.0 x 0.7 cm [facility] number: ??23 Indication(s) for Mohs Micrographic Surgery: [...] Duricef 500 mg BID x 5 days Geetha Martines M.D. DERM PROCEDURE ORDERABLES Fi nal Result documented in this encounter Visit Diagnoses Diagnosis Malignant Neoplasm Of Nose Basal Cell documented in this encounter Administered Medications Inactive Administered Medications - up to 3 most recent administrations Medication Order MAR Action Action Date Dose Rate Site LDHlbodogyg-itynitvmt-TBSQKRLzemt 0.25%-1%-1:200,000 injection 2-25 mL 2-25 mL, injection, As needed, may repeat if the patient complains of pain/discomfort at the site up to 50 mL for entire procedure, Starting on Thu03/11/24 at 0912, For 1 dayIndications:Malignant Neoplasm Of Nose Basal Cell Given 03/11/2024 2:47 PM CDT 2 mL Given 03/11/2024 9:13 AM CDT 2 mL lidocaine-EPINEPHrine 1%-1:200,000 injection 2-50 mL (Xylocaine w/epi) 2-50 mL, injection, As needed, may repeat if the patient complains of pain/discomfort at the site up to 50 mL for entire procedure, Starting on Thu03/11/24 at 0912, For 1 dayIndications:Malignant Neoplasm Of Nose Basal Cell Given 03/11/2024 2:47 PM CDT 4 mL Given 03/11/2024 9:13 AM CDT 4 mL lidocaine-sodium bicarbonate (buffered) 0.9%-0.84% injection 1 mL 1 mL, infiltration, Once, On Thu03/11/24 at 0930, For 1 dose, Final lidocaine concentration is 0.9% (9 mg/mL) Given 03/11/2024 9:13 AM CDT 2 mL documented in this encounter Care Teams Hatch Tender Relationship Specialty Start Date End Date Elsewhere, Pcp PCP - General Internal Medicine 07/09/22 documented as of this encounter
--- OUTSIDE RECORDS SUMMARY | 2024-03-23 09:17 | XMS_ITS | Encounter Summary ---
Author Organization [facility] Address [address] [place] [address] Care Team Providers Care Intelligence Manager Name Role Phone Elsewhere, Pcp Primary Care Provider Unavailabl e Encounter Details Date Type Department Care Team (Late st Contact Info) Description 04/16/2022 Orders Only [facility]ointment [facility] [address] [place] [address] [facility], Provider, Carpal Tunnel Syndrome Right; Carpal Tunnel Syndrome Bilateral; Carpal Tunnel Syndrome Left Social History Tobacco Use Types Packs/Day Years Used Date Smoking Tobacco: Light Smoker Cigarettes 0.3 14.5 Started: 957; Last attempted to quit: 07/04/1971 Smokeless Tobacco: Never Alcohol Use Standard Drinks/Week Comments Yes 0 (1 standard drink = 0.6 oz pure alcohol) occasional drinker only at socials Social Connection and Isolat ion Panel [NHANES] Answer Date Recorded In a typical week, how many times do you talk on the phone with family, friends, or neighbors? More than three times a week 10/29/2020 How often do you get togethe r with friends or relatives? Twice a week 10/29/2020 How often do you attend chur ch or quaker services? More than 4 times per year 10/29/2020 Do you belong to any clubs o r organizations such as denominational groups, unions, fraternal or athletic groups, or school groups? No 10/29/2020 How often do you attend meet ings of the clubs or organizations you belong to? Never 10/29/2020 Are you , , di vorced, , never , or living with a partner? 10/29/2020 AUDIT-C Answer Date Recorded Q1: How often do you have a drink containing alc ohol? Monthly or less 10/29/2020 Q2: How many drinks containi ng alcohol do you have on a typical day when you are drinking? 1 or 2 10/29/2020 Q3: How often do you have si x or more drinks on one occasion? Never 10/29/2020 Overall Financial Resource Strain (CARDIA) Answe r Date Recorded How hard is it for you to pa y for the very basics like food, housing, medical care, and heating? Not hard at all 10/29/2020 [facility] - Occupational Stress Questionnaire Answer Date Recorded [...] to strenuous exercise (like a brisk walk)? 5 days 10/29/2020 On average, how many minutes do you engage in exercise at this level? 60 min 10/29/2020 Hunger Vital Sign Answer Date Recorded Within [...] medical appointments or from getting medications? No 10/16 In the past 12 months, has l ack of transportation kept you from meetings, work, or from getting things needed for daily living? No 10/29/2020 Housing Stability Vital Sign Answer Aaron e Recorded In the last 12 months, was t here a time when you were not able to pay the mortgage or rent on time? No 10/29/2020 In the last 12 months, how many places have you lived? 2 10/29/2020 In the last 12 months, was t here a time when you did not have a steady place to sleep or slept in a fpc (including now)? No 10/29/2020 Nutrition Answer Date Recorded Nutrition: EVOO Fat Source Unknown 10/31 Nutrition: Servings of Fruits/Vegetables per Day Not on file 10/31/2021 Dental Answer Date Recorded Dental: Regular Dentist Unknown 11/01/19 Employment Answer Date Recorded Employment status Retired 10/29/2020 Education Answer Date Recorded What is the highest level of school you have completed or the highest degree you have received? 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 [address] [place] [phone] Discharge Disposition: Home or Self Care documented as of this encounter Visit Diagnoses Diagnosis Carpal Tunnel Syndrome Right Carpal Tunnel Syndrome Bilateral Carpal Tunnel Syndrome Left documented in this encounter Care Teams Intelligence Manager Relationship Specialty Start Date End Date Elsewhere, Pcp PCP - General Internal Medicine 07/09/22 documented as of this encounter
--- OUTSIDE RECORDS SUMMARY | 2024-03-23 09:17 | XMS_ITS | Encounter Summary ---
Author Organization [facility] Address [address] [place] [address] Care Team Providers Care Canoe Inspector Final Name Role Phone Elsewhere, Pcp Primary Care Provider Unavailabl e Reason for Referral * Outpatient (Routine) - Closed Specialty Diagnoses / Procedures Referred By Sherie t Referred To Contact Dermatology Diagnoses Malignant Neoplasm Of Nose Basal Cell Procedures XIMENA MOHS 1-4 sites Geetha Martines M.D. [address] [place] [phone] Phone: tel: fax: [facility] Referral ID Status Reason Start Date Expiration Date Visits Re quested Visits Authorized [id number] Closed 01/06/2024 01/05/2025 1 1 Encounter Details Date Type Department Care Team (Late st Contact Info) Description 01/06/2024 Orders Only Department of Dermatology in [place], [place] [address] [place] [phone] Geetha Martines M.D. [address] [place] [phone] Malignant Neoplasm Of Nose Basal Cell (Primary Dx) Social History Tobacco Use Types Packs/Day Years [...] often do you attend chur ch or nondenominational services? More than 4 times per year 05/05/2022 Do you belong to any clubs o r organizations such as samaritan groups, unions, fraternal or athletic groups, or [...] and heating? Not hard at all 10/29/2020 [facility] of Occupat ional Health - Occupational [...] place to sleep or slept in a jail (including now)? No 05/05/2022 Nutrition Answer Date [...] Master's degree (e.g., MA, MS, Mumtaz, MEd, MACHINE SWEEPER BRUSH MAKER, SABA) 09/27/2019 Sex and Gender Information Value Date Recorded Sex Assigned at Male 09/18/2018 8:37 AM CDT Legal Sex Male 10:09 PM ENGINE TURNER Gender Identity Male 09/18/2018 8:37 AM CDT Sexual Orientation Straight 09/18/2018 8: 37 AM CDT documented as of this encounter Plan of Treatment Upcoming Encounters Date Type Department Care Team (Late st Contact Info) Description 09/13/2024 1:45 PM CDT Office Visit Department of Dermatology in [address] [phone] Geetha Martines M.D. [address] [place] [address] Discharge Disposition: Home or Self Care documented as of this encounter Results * XIMENA MOHS 1-4 sites (03/11/2024 8:00 AM CDT) Narrative Jesús Bower M.D., M.S. - 03/11/2024 8:00 AM CDT Guerline Ambriz M.D. ? 03/11/2024 ??2:24 PM PREOP INDICATION: REMOVAL. Date of Surgery: 03/11/2024 Surgeon: Jesús Bower M.D. Sand Cutting Machine Operator: Guerline Ambriz M.D. Location: [place] ?? Bldg:GO ?? Floor:16 ?? Room:[facility] Visit Type: Outpatient PostOp Diagnosis: Basal Cell Carcinoma, Nodular Anatomic Location: ??Left nasal alar rim Preoperative size: ??1.0 x 0.7 cm [facility] number: ??23 Indication(s) for Mohs Micrographic Surgery: [...] Diagnoses Diagnosis Malignant Neoplasm Of Nose Basal Cell- Primary Malignant Neoplasm Of Nose Basal Cell documented in this encounter Care Teams Canoe Inspector Final Relationship Specialty Start Date End Date Elsewhere, Pcp PCP - General Internal Medicine 07/09/22 documented as of this encounter
--- OUTSIDE RECORDS SUMMARY | 2024-03-23 09:17 | XMS_ITS | Encounter Summary ---
Author Organization [facility] Address [address] [place] [address] Care Team Providers Care Human Resources Analyst Name Role Phone Elsewhere, Pcp Primary Care Provider Unavailabl e Encounter Details Date Type Department Care Team (Late st Contact Info) Description 01/04/2024 8:55 AM CDT Ancillary Procedure Department of Dermatology Social History [...] How often do you attend chur or mandaeism services? More than 4 times per year 05/05/2022 Do you belong to any clubs o r organizations such as presybeterian groups, unions, fraternal or athletic groups, or [...] and heating? Not hard at all 10/29/2020 [facility] of Occupat ional [facility] - Occupational Stress Questionnaire Answer Date [...] place to sleep or slept in a halfway (including now)? No 05/05/2022 Nutrition Answer Date [...] Master's degree (e.g., MA, MS, Mumtaz, MEd, ROASTER OPERATOR, SABA) 09/27/2019 Sex and Gender Information Value Date Recorded Sex Assigned at Male 09/18/2018 8:37 AM CDT Legal Sex Male 10:09 PM GENERAL NEUROLOGIST Gender Identity Male 09/18/2018 8:37 AM CDT Sexual Orientation Straight 09/18/2018 8: 37 AM CDT documented as of this encounter Plan of Treatment Upcoming Encounters Date Type Department Care Team (Late st Contact Info) Description 09/13/2024 1:45 PM CDT Office Visit Department of Dermatology in [address] [phone] Geetha Martines M.D. [address] [place] [phone] Discharge Disposition: Home or Self Care documented as of this encounter Procedures Procedure Name Priority Date/Time Associated Diagnosis Comments DERMATOLOGY IMAGE EXAM Routine 01/04/2024 8:55 AM CDT documented in this encounter Results * Nose, Left 15 17 19 21 23-Dermatology Image Exam (01/04/2024 8:55 AM CDT) 01/04/2024 8:55 AM CDT Narrative [facility] - 01/04/2024 8:57 AM CDT This order has been created and auto-finalized to support the import of images acquired without order. The clinical documentation to support these images can be found on the encounter that produced images. us Provider Not In System IMG NON RAD IMAGING PROCE DURES Final Result [facility] NA documented in this encounter Visit Diagnoses Not on filedocumented in this encounter Care Teams Human Resources Analyst Relationship Specialty Start Date End Date Elsewhere, Pcp PCP - General Internal Medicine 07/09/22 documented as of this encounter
--- OUTSIDE RECORDS SUMMARY | 2024-03-23 09:17 | XMS_ITS | Encounter Summary ---
Author Organization [facility] Address [address] [place] [address] Care Team Providers Care Recreation Therapy Aides Teacher Name Role Phone Elsewhere, Pcp Primary Care Provider Unavailabl e Encounter Details Date Type Department Care Team (Late st Contact Info) Description 01/05/2024 Clinical Communication Department of Dermatology in [place], [place] [address] [place] [phone] Geetha Martines M.D. [address] [place] [address] Social History Tobacco Use Types Packs/Day Years [...] often do you attend chur ch or orthodox services? More than 4 times per year 05/05/2022 Do you belong to any clubs o r organizations such as holiness groups, unions, fraternal or athletic groups, or [...] and heating? Not hard at all 10/29/2020 [facility] of Occupat ional Health - Occupational Stress [...] place to sleep or slept in a care home (including now)? No 05/05/2022 Nutrition Answer Date [...] Master's degree (e.g., MA, MS, Mumtaz, MEd, NEWS INTERNSHIP, SABA) 09/27/2019 Sex and Gender Information Value Date Recorded Sex Assigned at Male 09/18/2018 8:37 AM CDT Legal Sex Male 10:09 PM DIRECTOR EMERGENCY SERVICES Gender Identity Male 09/18/2018 8:37 AM CDT Sexual Orientation Straight 09/18/2018 8: 37 AM CDT documented as of this encounter Plan of Treatment Upcoming Encounters Date Type Department Care Team (Late st Contact Info) Description 09/13/2024 1:45 PM CDT Office Visit Department of Dermatology in [address] [phone] Geetha Martines M.D. [address] [place] [phone] Discharge Disposition: Home or Self Care documented as of this encounter Visit Diagnoses Not on filedocumented in this encounter Care Teams Recreation Therapy Aides Teacher Relationship Specialty Start Date End Date Elsewhere, Pcp PCP - General Internal Medicine 07/09/22 documented as of this encounter
--- OUTSIDE RECORDS SUMMARY | 2024-03-23 09:17 | XMS_ITS | Encounter Summary ---
Author Organization [facility] Address [address] [place] [address] Care Team Providers Care Automotive Quality Manager Name Role Phone Elsewhere, Pcp Primary Care Provider Unavailabl e Reason for Referral * Outpatient (Routine) - Closed Specialty Diagnoses / Procedures Referred By Sherie paredes Referred To Contact Dermatology Geetha Martines M.D. [address] [place] [address] Phone: tel: fax: [facility] Region Referral ID Status Reason Start Date Expiration Date Visits Re quested Visits Authorized [id number] Closed 01/04/2024 07/05/2025 1 1 Scheduling Instructions Return March 15, 830-9am. 30 minutes Reason for Visit * Reason Comments Skin Check * Appointment Request (Routine) - Closed Specialty Diagnoses / Procedures Referred By Contac t Referred To Contact Dermatology Referral ID Status Reason Start Date Expiration Date Visits Re quested Visits Authorized [id number] Closed 08/10/2023 08/09/2024 1 1 Encounter Details Date Type Department Care Team ([facility] st Contact Info) Description 01/04/2024 8:30 AM CDT Office Visit Department of Dermatology in [address] [address] Geetha Martines M.D. [address] [place] [phone] Keratosis Actinic (Primary Dx); Tumor Skin Uncertain Behavior; Nevi Multiple; Keratosis Seborrheic Discharge Disposition: Home or Self Care Social [...] often do you attend chur ch or restorationist services? More than 4 times per year 05/05/2022 Do you belong to any clubs o r organizations such as buddhism groups, unions, fraternal or athletic groups, or [...] and heating? Not hard at all 10/29/2020 [facility] [place] of Occupat ional Health - Occupational Stress [...] place to sleep or slept in a mcfp (including now)? No 05/05/2022 Nutrition Answer Date [...] Master's degree (e.g., MA, MS, Mumtaz, MEd, ATV MECHANIC, SABA) 09/27/2019 Sex and Gender Information Value Date Recorded Sex Assigned at Male 09/18/2018 8:37 AM CDT Legal Sex Male 10:09 PM ATTENDANCE CLERK Gender Identity Male 09/18/2018 8:37 AM CDT Sexual Orientation Straight 09/18/2018 8: 37 AM CDT documented as of this encounter Progress Notes * Geetha Martines M.D. - 01/04/2024 8:30 AM CDT SUBJECTIVE CHIEF COMPLAINT / REASON FOR VISIT Melanoma recheck HISTORY OF PRESENT ILLNESS Franklyn Zimmerman is a pleasant 88 y.o. male who presents for a melanoma recheck. The patient was last seen by me in Dermatology clinic on 03/03/23. He has a history of multiple non-melanoma skin cancers, most recently a basal cell carcinoma involving the right nasal ala, status post Mohs surgery on 05/27/[address] Jones at [facility]. 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 Bower at [facility]. He denies a family historyof melanoma.There is a sign language interpretor present over iPad today. He would particularly like us to evaluate a lesion involving the nose today that he states has not healed over almost one year as well as a lesion involving the right ear. MEDICAL HISTORY Left frontal scalp: History of melanoma in situ, recently diagnosed at [facility], status post Mohssurgery on 12/23/[address] Bower at [facility] Left arm: History of invasive well-differentiated squamous cell carcinoma, status post excision in [address] Hassan at [facility] (Plastic Surgery) Mid-posterior neck and right scapula: History of nodular basal cell carcinoma x 2, status post excision in [address] Hassan at [facility] (Plastic Surgery) Left shoulder: History of superficial basal cell carcinoma, status post excision in [address] Hassan at [facility] (Plastic Surgery) Left jawline and left yarsanism: History of nodular basal cell carcinoma x 2, status post Mohs surgeries on 12/26/[address] Maldonado at [facility] Left shoulder: Nodular and superficial basal cell carcinoma, status post curettage and cryotherapy on 02/05/[address] Martines at [facility] Right nasal ala: History of basal cell carcinoma, status post Mohs surgery on 03/27/[address] Pardo [facility] Scalp: History of squamous cell carcinoma, status post Mohs surgery on 12/23/[address] Bower at [facility] FAMILY HISTORY Negative for melanoma OBJECTIVE PHYSICAL EXAMINATION General: Awake, alert, in no acute distress, and with appropriate affect. Eyes: No scleral injection or icterus. No eyelid abnormalities. Lymph: No lower extremity edema. No lymphadenopathy of head and neck and axilla. Skin: I have examined the scalp, face, neck, chest, abdomen, back, bilateral upper extremities, andbilateral lower extremities. Examination of the left frontal scalp reveals no evidence for recurrence of melanoma in situ. Examination of the left arm and scalp reveals no evidence for recurrence of squamous cell carcinomax 2. Examination of the mid-posterior neck, right scapula, left shoulder, left jawline, left yarsanism, left shoulder and right nasal ala reveals no evidence for recurrence of basal cell carcinoma x 7. Examination today reveals actinic keratoses, including 10 right ear helix, 6 right ear antihelix, 10 scalp, 2 forehead, 2 left cheek, 7 left ear helix, 2 left cheek, 4 right cheek, 4 nasal bridge, 1 left dorsal hand and 1 left forearm. Examination of the face, trunk and extremities reveals multiple benign-appearing nevi, lentigines and seborrheic keratoses. Examination of the nose (above left nasal alar rim) reveals a 3 x 2 mm light- brown scaly macule with telangiectasia, rule out basal cell carcinoma vs irritated seborrhiec keratosis. Examination of the right lower garcia reveals a scab, status post trauma about two weeks ago. I recommend he apply Vaseline twice daily as needed. ASSESSMENT / PLAN #1 Left frontal scalp: Melanoma in situ, recently diagnosed at [facility], status post Mohs surgeryon 12/23/[address] Bower at [facility], no recurrence A skin cancer screening was performed as described above. No clinical evidence of local recurrence of melanoma today. Due to the history of melanoma, there is an increased risk of additional melanomain the future. Recommended monthly self- skin examinations to evaluate for new, changing, symptomatic, or otherwise worrisome lesions. Signs and symptoms of melanoma and non-melanoma skin cancer discussed. Photoprotection was recommended. Return to Dermatology in 6 months for a full skin exam or immediately if any new or changing lesions are noted. #2 Scalp, face, left dorsal hand, left forearm: Actinic keratosis x 49 CONSENT Discussed the risks, benefits, alternatives, and the necessity of other members of the healthcare team participating in the procedure. All questions answered and consent given. PROCEDURE INFORMATION Given the precancerous nature of this lesion(s), treatment is medically indicated. After discussionof the risks, benefits and alternatives to treatment with cryotherapy, informed consent was obtained. I particularly discussed potentially using Efudex cream during the fall or winter months, but he was not interested at this time. We treated a total of 49 lesion(s) with two 10-second freeze-thaw cycles of liquid nitrogen cryotherapy. The patient tolerated the procedure well. Aftercare instructions were provided in written and verbal form to the patient. Should any of these lesions recur, the patient should return for biopsy or further evaluation. Follow up in 3 months for a recheck of the act inic keratoses. #3 Nose (above right nasal alar rim): Rule out basal cell carcinoma vs irritated seborrhiec keratosis We recommend a shave biopsy of the nose (above right nasal alar rim). Photographs taken today by Carina PEREZ with verbal patient consent. We will correspond as to the results and if any further treatment is needed. PROCEDURAL PAUSE: Procedural pause conducted to verify: correct patient identity, procedure to be performed, and as applicable, correct side and site, correct patient position, and availability of implants, special equipment or special requirements. PROCEDURE DETAILS: Shave biopsy. We explained the potential diagnosis and recommended that we obtain a biopsy. The risks and benefits of the procedure were discussed, and the patient consented to these procedures. The patient deniesany allergies to local anesthetics. Using 1% lidocaine with epinephrine for local anesthesia, a shave biopsy was obtained from above the right nasal alar rim. Biopsy submitted to Dermatopathology forH&E. Special stains will be performed as indicated. The bleeding was well controlled with application of aluminum chloride. Dressing was applied, and wound care instructions were explained. Biopsy results and any further recommendations will be communicated to the patient by letter. Patient given pamphlet [id number]. Discussed the risks, benefits, alternatives, and the necessity of other members of the healthcare team participating in the procedure. All questions answered and consent given. #4 Face, trunk and extremities: Multiple nevi and lentigines The ABCDE criteria for melanoma was reviewed with the patient. None of the patient's nevi reach theclinical threshold for biopsy. I recommend continued sun protection, self-skin examinations, and observation. Should any of the patient's nevi change in size, color, texture, or shape or develop symptoms such as itching or bleeding, I recommend an immediate return visit for reassessment. #5 Face, trunk and extremities: Seborrheic keratosis The benign nature of the skin lesion(s) was discussed with the patient. No treatment is required. Irecommend continued observation. Should this lesion change in size, color, texture, or shape or develop symptoms such as itching or bleeding, I recommend an immediate return visit for reassessment. #6 Left arm: History of invasive well-differentiated squamous cell carcinoma, status post excision in [address] Hassan at [facility] (Plastic Surgery), no recurrence No clinical evidence of local recurrence today. Recommended monthly self-skin examinations to evaluate for new, changing, symptomatic, or otherwise worrisome lesions. Signs and symptoms of skin cancer discussed. Photoprotection was recommended. Return to Dermatology in 6 months for a full skin examor immediately if any new or changing lesions are noted. #7 Mid-posterior neck and right scapula: History of nodular basal cell carcinoma x 2, status post excision in [address] Hassan at [facility] (Plastic Surgery), no recurrence No clinical evidence of local recurrence today. Recommended monthly self-skin examinations to evaluate for new, changing, symptomatic, or otherwise worrisome lesions. Signs and symptoms of skin cancer discussed. Photoprotection was recommended. Return to Dermatology in 6 months for a full skin examor immediately if any new or changing lesions are noted. #8 Left shoulder: History of superficial basal cell carcinoma, status post excision in [address] Hassan at [facility] (Plastic Surgery), no recurrence No clinical evidence of local recurrence today. Recommended monthly self-skin examinations to evaluate for new, changing, symptomatic, or otherwise worrisome lesions. Signs and symptoms of skin cancer discussed. Photoprotection was recommended. Return to Dermatology in 6 months for a full skin examor immediately if any new or changing lesions are noted. #9 Left jawline and left yarsanism: History of nodular basal cell carcinoma x 2, status post Mohs surgeries on 12/26/[address] Maldonado at [facility], no recurrence No clinical evidence of local recurrence today. Recommended monthly self-skin examinations to evaluate for new, changing, symptomatic, or otherwise worrisome lesions. Signs and symptoms of skin cancer discussed. Photoprotection was recommended. Return to Dermatology in 6 months for a full skin examor immediately if any new or changing lesions are noted. #10 Left shoulder: Nodular and superficial basal cell carcinoma, status post curettage and cryotherapy on 02/05/[address] Martines at [facility] , no recurrence No clinical evidence of local recurrence today. Recommended monthly self-skin examinations to evaluate for new, changing, symptomatic, or otherwise worrisome lesions. Signs and symptoms of skin cancer discussed. Photoprotection was recommended. Return to Dermatology in 6 months for a full skin examor immediately if any new or changing lesions are noted. PATIENT EDUCATION: Ready to learn. No apparent learning barriers were identified. Learning preferences include listening. Explained diagnosis and treatment plan; patient/guardian of patient expressed understanding of the content. By signing my name below, I, Kathy Walker, attest that this documentation has been prepared underthe direction and in the presence of Geetha Martines M.D. Electronically Signed: gavin Bautista. 01/04/2024. 8:36 AM CDT. I, Geetha Martines M.D., personally performed the services described in this documentation. All medical record entries made by the scribe were at my direction and in my presence. I have reviewed the chart and discharge instructions (if applicable) and agree that the record reflects my personal performance and is accurate and complete. Geetha Martines M.D. Scribed for Geetha Martines M.D. by Kathy Walker, on 01/04/2024, 8:58 AM CDT. * Sanjana Ho, RAndresN. - 01/04/2024 8:30 AM CDT Franklyn is here for a follow up appointment with Dr. Martines. A shave biopsy was performed on the left nasal rim. While this nurse was bandaging the site, his reported that she did not think he was feeling well. He c/o feeling nauseous. He was sitting on the exam table and assisted to semi-fowlers position with legs raised. VS were taken- BP 97/64, P 58, 02 93-95% on RA. BP continued to remainin 90's over 60's. His reported his BP has been in the low 100's/60's lately. A emesis bag andice pack were provided. Franklyn symptoms resolved within a few minutes. He was provided a glass of water. He was able to get dressed and walk about the room without symptoms. Nursing to continue to monitor. * Sanjana Ho R.N. - 01/04/2024 8:30 AM CDT During your recent dermatology visit a skin biopsy was performed. Biopsy results usually take from 1 to 3 weeks (excluding weekends and holidays) to return. Your biopsy results will be released to the patient portal at the same time as they are released to your dermatology provider. Please allow a full 3 to 5 days (excluding weekends and holidays) for your provider to contact you before reaching out with questions or concerns regarding the results. If multiple tests or biopsies have been performed, you will be contacted when ALL results are available. In most cases, the dermatology provider will send you a letter outlining the diagnosis and any recommended next steps. Result letters can be found in the portal under the ???Letters?? section. In some cases, the provider may decide to call you about the results. We greatly appreciate your patience and value your trust in [facility] for your dermatology care. documented in this encounter Miscellaneous Notes * Result Encounter Note - Geetha Martines M.D. - 01/05/2024 5:34 PM CDT Skin above left nasal alar rim: Nodular basal cell carcinoma- needs Mohs surgery [facility] patient. NEEDS BILLING CLERK AT TIME OF MOHS SURGERY. PLEASE MAKE SURE THIS GETS PUT INTO THE MOHS SURGERY ORDER. THANKS Please send letter documented in this encounter Plan of Treatment Upcoming Encounters Date Type Department Care Team (Late st Contact Info) Description 09/13/2024 1:45 PM CDT Office Visit Department of Dermatology in [address] [phone] Geetha Martines M.D. [address] [place] [address] Discharge Disposition: Home or Self Care Scheduled Referrals Name Type Priority Associated Diagnoses Order Schedule Dermatology office visit (clinic) Outpatient Referral Routine Expected: 03/15/2024 (Approximate), Expires: 04/05/2025 documented as of this encounter Procedures Procedure Name Priority Date/Time Associated Diagnosis Comments DERMATOPATHOLOGY Routine 01/04/2024 8:49 AM CDT Tumor Skin Uncertain Behavior documented in this encounter Results * Dermatopathology (01/04/2024 8:49 AM CDT) 01/05/2024 [...] LAB PATH DERM ORDERABLES Fin al Result [facility] [address] [place] [id number], [facility] ECLR [address] [phone] documented in this encounter Visit Diagnoses Diagnosis Keratosis Actinic- Primary Tumor Skin Uncertain Behavior Nevi Multiple Keratosis Seborrheic documented in this encounter Care Teams Automotive Quality Manager Relationship Specialty Start Date End Date Elsewhere, Pcp PCP - General Internal Medicine 07/09/22 documented as of this encounter
--- OUTSIDE RECORDS SUMMARY | 2024-03-23 09:17 | XMS_ITS | Continuity of Care Document ---
Author Organization [facility] [place] Office Address [address] [facility] [address] [place] [address] Assessment Encounter Date Assessment Date Assessment LastModified by Organization Details LastModified Time 02/09/2024 02/09/2024 Debrided all mycotic/dystrophi c nails and hyperkeratotic lesion without complication as documented. The patient tolerated footcare well. Recommended regular follow-up to prevent complications and manage pain due to thick, elongated nails and calluses, inlcuding when he is in [place]. All questions answered. The patient was encouraged to contact the office with any questions or concerns. Patient will follow up once he returns from [place] in August of next year. [email or web address] Not available 02/09/2024 10:09:23 Plan of Treatment Reminders Order Date Submit Date Provider Last Modified By Organization Details Last Modified Time Details Appointments None record ed. Lab None record ed. Referral None record ed. Procedures None record ed. Surgeries None record ed. Imaging None record ed. Medication Orders None record ed. Patient TargetsNo targets recorded. Patient InstructionsNo instructions recorded. Reason for Referral None Reported. Problems Name Problem SNOMED Code Status Onset Date Resolution Date Notes Provider Name and Address Organization Details Recorded Time Diabetic care Active [address] Cox 11/08 Latha curry [facility] 14:56:22 Problem Notes None recorded. Procedures Surgical History Date Name Laterality Status Provider Name and Address Organization Details Recorded Time 02/09/2024 NAIL/Callu sDEBRIDEME NT completed VIRAL MYERS, JALYN [address] [place], [phone], [facility] 02/09/2024 10:08:16 11/05/2023 NAIL/Callu sDEBRIDEME NT completed VIRAL MYERS, DPM [address] [place], [phone], [facility] 11/05/2023 19:52:09 Imaging Results None recorded. Procedure Notes None recorded. Medical Equipment None Reported. Allergies No known drug allergies Medications Name Sig Start Date Stop Date Status Note LastModified by Organization Details LastModified Time metoprolol tartrate 100 mg tablet active Not Available Not Available Not Available prednisone 20 mg tablet TAKE 2 TABLETS BY MOUTH EVERY MORNING WITH FOOD FOR 7 DAYS ON DAYS 8-10 TAKE 1 TABLET EVERY MORNING WITH FOOD active Not Available Not Available No t Available tramadol 50 mg tablet TAKE 1 TABLET BY MOUTH EVERY 6 HOURS NEEDED FOR PAIN 02/08 completed Not Available Not Available Not Available glimepiride 2 mg tablet active Not Available Not Available Not Available doxycycline monohydrate 50 mg tablet TAKE ONE TABLET BY MOUTH TWICE A DAY FOR 2 MONTHS active Not Available Not Available No t Available tamsulosin 0.4 mg capsule 02/08 completed Not Available Not Available Not Available benzonatate 100 mg capsule TAKE 1 TO 2 CAPSULES BY MOUTH EVERY 8 HOURS DIRECTED NEEDED FOR COUGH active Not Available Not Available No t Available erythromyci n 5 mg/gram (0.5 %) eye ointment APPLY 1 CM TO LOWER CONJUNCTI LORETO SAC IN BOTH EYES EVERY EVENING 02/08 completed Not Available Not Available Not Available allopurinol 300 mg tablet active Not Available Not Available Not Available hydrochloro thiazide 25 mg tablet 02/08 completed Not Available Not Available Not Available tobramycin 0.3 %-dexametha sone 0.1 % eye drops,suspe nsion SHAKE LIQUID AND INSTILL 1 DROP IN RIGHT EYE FOUR TIMES DAILY FOR 1 WEEK 02/08 completed Not Available Not Available Not Available neomycin 3.5 mg/g-polymy sheila B 10,000 unit/g-dexa meth 0.1 % eye oint APPLY TO BOTH UPPER EYELIDS AT BEDTIME FOR 1 MONTH 02/08 completed Not Available Not Available Not Available moxifloxaci n 0.5 % eye drops INSTILL 1 DROP IN LEFT EYE THREE TIMES DAILY active Not Available Not Available No t Available neomycin-po lymyxin B-dexameth 02/08 completed Not Available Not Available Not Available tamsulosin active Not Available Not Av ailable Not Available metoprolol tartrate 02/08 completed Not Available Not Available Not Available hydrochloro thiazide active Not Available Not Available Not Available allopurinol 02/08 completed Not Available Not Available Not Available fluticasone propionate 02/08 completed Not Available Not Available Not Available glimepiride 02/08 completed Not Available Not Available Not Available OneTouch Verio test strips active Not Available Not Available Not Available Vitals None Recorded Social History None recorded. Functional Status None recorded. Mental Status None recorded. Family History Nothing Reported. Medical History No medical history recorded. Past Encounters Encounter ID Performer Location Encounter Start Date Encounter Closed Date Diagnosis/Indication Diagnosis SNOMED-CT Code Diagnosis ICD10 Code [id number] VIRAL MYERSJALYN [place] Office [address] [place] [address] [address] [place] [address] 02/09/2024 09:48:22 02/10/2024 09:43:39 Peripheral neuropathy due to type 2 diabetes mellitus 4918681176 107 E11.42 Acquired l eft hallux valgus 6611634004 15575 M20.12 Acquired r ight hallux valgus 6107520417 07210 M20.11 Acquired h ammer toe of right foot 7995011434 642200 M20.41 Acquired h ammer toe of left foot 0561664722 685918 M20.42 Onychomycosis 027665439 B35.1 Peripheral vascular disease 843498498 I73.89 Pain of to e of right foot 2114542298 64225 M79.674 Pain of to e of left foot 2635955994 15134 M79.675 Health Concerns Section Related Observation LastModified by Organization Detai ls LastModified Time None Recorded Concern Status LastModified by Organization Details LastModified Time None Recorded Payers Encounter Date Sequence Insurance Name Policy Number Policy Yadav Covered Member ID Yadav Member ID Guarantor Name 02/09/2024 1 [facility] (MEDICARE REPLACEMENT/A DVANTAGE - PPO) [id number] Franklyn Zimmerman [id number] Franklyn Zimmerman Notes Date Note Type Note Provider Name and Address Organization Details Recorded Time 02/09/2024 text/html HPI Notes: Patie nt presents complaining of long, painful, thickened toenails and calluses. Patient does relate to previous relief from debridement. They are unable to care for themselves due to the thickness of the nails. Patient denies any other pedal complaints at this time. States that his diabetic shoes have been fitting well. States that he is leaving for [place] soon for the winter and will not be back until August. 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 Last visit with primary care doctor, Dr. Cox, was in October 2023 VIRAL MYERS DPM [address] [place], [address], [facility] 02/09/2024 10:10:12
== END 2024-03-23 09:14 | disposition home or self-care (01) ==
PROVIDERS: PCP Family Medicine; Visit Provider Family Medicine
DX: I10 Essential (primary) hypertension (principal); Z13.220 Encounter for screening for lipoid disorders
CPT/HCPCS: 80048; 80061; 85025

== ENCOUNTER 2025-02-20 17:49 | Outpatient (CLI) | payer MEDICARE, SELFPAY ==
--- NOTE | 2025-02-20 18:15 | MR_ITS ---
[address] [address] Phone:?[phone] Fax:?[phone] Referring Physician Information: Willow Sanchez [address] [facility] [address] Phone:?[phone] Fax:?[phone] Patient:Gus Zimmerman D.O.B:?1935 Sex:?Male Phone:?[phone] [facility] MRN:?[id number] Exam Date:?02/20/2025 EXAM: MRI of the RIGHT KNEE without contrast CLINICAL: Right knee pain status post injury. Evaluate for quadriceps tendon tear. COMPARISONS: X-rays dated 02/20/2025. TECHNICAL: Multiplanar multisequence MRI of the right knee was obtained. SEDATION: None. CONTRAST: None. FINDINGS: Ligaments: ACL: There is mucoid degeneration of the ACL without evidence of ligament disruption. PCL: Mild mucoid degeneration of the PCL without evidence of ligament disruption. MCL: There is soft tissue edema about the MCL, which otherwise appears intact. LCL: There is soft tissue edema about the LCL, which otherwise appears intact. Posterolateral corner: The popliteus tendon, distal biceps femoris tendon, distal iliotibial band, and the popliteofibular ligament appear intact. Posteromedial corner: Semimembranosus, pes anserine tendons and posterior oblique ligament appear intact. Extensor mechanism: Patellar tendon: Intact, without tendinopathy. Quadriceps tendon: There is complete full-thickness rupture of the distal quadriceps tendon with approximately 2.6 cm of proximal tendon retraction. There is extension of joint fluid through the distal quadriceps tendon defect into the anterior knee subcutaneous soft tissues with a large partially visualized complex fluid collection/hematoma adjacent to the distal quadriceps tendon tear extending into the anterior knee soft tissues measuring greater than 12 cm in craniocaudal dimension. Retinacula: There is increased soft tissue edema about the lateral patellar retinaculum, without evidence of disruption. There is increased soft tissue about the medial patellofemoral ligament/medial patellar retinaculum with irregularity and suspected partial tearing involving the medial patellofemoral ligament. Patellofemoral joint: Patella: Small segment of full-thickness chondral loss involves the patellar median ridge on axial series 4 image 9 with mild subchondral reactive marrow edema. Grade 2-3 chondral loss involves the inferior lateral patellar facet with minimal adjacent subchondral reactive marrow edema. Trochlea: There is mild chondral surface irregularity and grade 2 chondral loss involving the central trochlea. Medial compartment: Medial meniscus: There is complex tearing throughout the posterior horn and throughout the body segment extending into the anterior horn. Approximately 4 mm of medial and 3 mm of inferior displacement of torn body segment medial meniscal tissue into the medial gutter. Medial cartilage: Small segment of grade 2-3 chondral loss involves the posterior weightbearing medial femoral condyle adjacent to the posterior horn medial meniscus. Medial tibial plateau cartilage is maintained. Lateral compartment: Lateral meniscus: There is complex tearing throughout the entire lateral meniscus. No significant meniscal displacement. Lateral cartilage: There is high-grade and full-thickness chondral loss involving the lateral tibial plateau and also involving the weightbearing lateral femoral condyle adjacent to the posterior horn lateral meniscus. Knee joint: Effusion: Versed visualized right knee joint effusion is present with extension of joint fluid through the distal quadriceps tendon defect into the anterior knee subcutaneous soft tissues. Intra-articular bodies:?No convincing bodies identified. Popliteal cyst: Small. Bones: No evidence of fracture. Small benign-appearing osseous lesion is seen to involve the posterior proximal tibia on axial series 4 image 26-28 and coronal series 8 image 22-23. There is scattered edema involving the subcutaneous soft tissues of the knee. IMPRESSION: 1. Complete full-thickness rupture of the distal quadriceps tendon with approximately 2.6 cm of proximal tendon retraction. Large partially visualized complex fluid collection/hematoma about the distal quadriceps tendon tear with extension of joint fluid through the distal quadriceps tendon defect into the anterior knee subcutaneous soft tissues. 2. Tearing of the medial and lateral menisci as above with displacement of torn body segment meniscal tissue into the medial gutter. 3. Chondral loss involving all 3 compartments of the knee as above. 4. Mucoid degeneration of the ACL greater than the PCL. 5. Small popliteal cyst. JCZ Electronically signed on 02/21/2025 9:05:00 AM by Selvin Lemus D.O.
== END 2025-02-20 17:50 | disposition home or self-care (01) ==
PROVIDERS: PCP Family Medicine; Visit Provider Physician Assistant
DX: M25.561 Pain in right knee (principal); S83.281A Other tear of lateral meniscus, current injury, right knee, initial encounter; S83.241A Other tear of medial meniscus, current injury, right knee, initial encounter; M71.21 Synovial cyst of popliteal space [Baker], right knee; S89.91XA Unspecified injury of right lower leg, initial encounter
CPT/HCPCS: 73721

== ENCOUNTER 2025-02-21 15:22 | Outpatient (CLI) | payer MEDICARE, SELFPAY | END 2025-02-21 15:23 | disposition home or self-care (01) | PROVIDERS: PCP Family Medicine; Visit Provider Family Medicine | DX: E11.9 Type 2 diabetes mellitus without complications (principal); I10 Essential (primary) hypertension | CPT/HCPCS: 80048; 80061; 82043; 82570; 85025 ==

== ENCOUNTER 2025-02-22 06:04 | Day surgery (SDC) | payer MEDICARE, SELFPAY ==
[2025-02-22] VITALS (13 sets, daily range): BP systolic 115–147; BP diastolic 66–76; PULSE 65–79; RESP 10–18; TEMP 36.3–36.7; O2SAT 95–100; BMI 29.2
[2025-02-22] MEDS: ACETAMINOPHEN 500 MG TABLET 1000 MG PO (06:15)
[2025-02-22] MEDS: OXYCODONE (CR) 10 MG TAB.ER.12H PO (06:15)
[2025-02-22] MEDS: CELECOXIB 200 MG CAPSULE PO (06:15)
[2025-02-22] MEDS: SODIUM CHLORIDE 0.9 % (FLUSH) 10 ML SYRINGE IVF (06:50)
[2025-02-22] MEDS: LACTATED RINGERS 1000 ML 1,000 ML 100 ML IV (06:50)
[2025-02-22] MEDS: MIDAZOLAM HCL 1 MG/ML inj IVP (07:00)
--- NOTE | 2025-02-22 07:14 | SUR.PREOP ---
TIME?OUT:?0650 PT/RN/ENID?VERIFICATION?OF?SURGICAL?SITE,?PROCEDURE,?AND?CONSENT OBTAINED?PRIOR?TO?INVASIVE?PROCEDURE. darshana sutherland mda pt and consent right knee
--- NOTE | 2025-02-22 08:16 | P.ORPRC_ITS ---
Procedure Note Date of procedure: 02/22/25 Procedure: PREOPERATIVE DIAGNOSIS: Right knee quads tendon tear POSTOPERATIVE DIAGNOSIS: Right knee quads tendon tear NAME OF OPERATION: Right knee quads tendon repair SURGEON: Hadley Morales MD FINANCIAL ACCOUNTING MANAGER: Nadeen Garcia PA-C ANESTHESIA: General ESTIMATED BLOOD LOSS: 25 mL COMPLICATIONS: None SPECIMENS: None DRAINS: None PREOPERATIVE ANTIBIOTICS: Ancef 2 grams IMPLANTS: None INDICATIONS: The patient is a 89-year-old who fell recently sustaining the above diagnoses. Operative intervention was recommended. The risks, benefits and expected outcomes were discussed in detail. These included but were not limited to: Infection, bleeding, injury to blood vessel or nerve, venous thromboembolism. All questions were answered to their satisfaction. Use of an golf player assistant was necessary throughout the case for patient positioning and safety, soft tissue retraction, and closure. PROCEDURE: A femoral nerve block was placed by Anesthesia. General anesthesia was administered. The patient was placed supine on the operating table. The left lower extremity was prepped and draped in the usual sterile fashion. The limb was exsanguinated with the Lenard bandage. The pneumatic tourniquet was inflated to 225 mmHg. A longitudinal, midline incision was made over the anterior aspect of the knee. Subcutaneous dissection was taken sharply to the quads tendon. Full-thickness medial and lateral flaps were elevated. The quads tendon was found to be ruptured completely from its insertion on the proximal pole of the patella. The medial and lateral retinacula were completely torn as well. Hematoma was removed with the curette and rongeur. A modified Krackow stitch x2 with 1.7 mm suture tape was placed in the quads tendon. We then drilled a Beath pin x3 through the patella from proximal to distal. We then passed suture tails through the patella using the Beath pins to shuttle them. One suture both medially and laterally and 2 suture tails centrally. We then advanced the patella proximally with a rake and tied the trans osseous suture tape sutures over the distal pole of the patella. We closed the medial and lateral retinacula with a # 1 Stratafix suture. Subcutaneous tissues were closed with a 3-0 Stratafix and the skin with a running 3-0 Stratafix in a subcuticular fashion. A dry dressing and knee immobilizer were applied. Sponge and needle counts were correct x2. The patient tolerated the procedure well. There were no apparent complications. They were carefully transferred to the hospital bed and taken to the postanesthesia care unit in satisfactory condition. PLAN: The patient will be discharged to home. They may weightbear as tolerates in the knee immobilizer, with the knee locked in full extension. No range of motion will be allowed for the 1st 2 weeks postoperatively, then 0-30 degrees for 2 weeks, then 0-60 degrees x2 weeks, then 0-90 degrees. They will follow up in the office in 2 weeks for a wound check and to unlock the brace 0- 30 degrees.
--- NOTE | 2025-02-22 10:19 | P.NB_ITS ---
Nerve Block Nerve Block Time Seen by Provider: 06:55 Date Seen: 02/22/25 Type of block requested by surgeon for post-operative analgesia: femoral Side: right Time out performed: Yes Verification of patient name: Yes Verification of date of : Yes Site marking: site marked Name of person performing procedure: Chandan Continuous monitoring Was continuous monitoring of O2 sat, B/P, library monitor, recorded every 15 minutes?: Yes Procedure Checklist: sterile prep, needles and gloves Ultrasound guided. Images saved: Yes Medications given in 5ml increments after negative aspiration: Marcaine %: 0.25 mL: 10 Needle gauge: 20 and Exparel mL: 10 Patient tolerated procedure well: Yes Block Charges Block Charge (with Pro Fee): Femoral Nerve Use of Ultrasound Machine for Block: Yes- US Guidance/pain block
--- NOTE | 2025-02-22 10:19 | P.ANES_ITS ---
Anesthesia Charges Start Date/Time Anesthesia Start Date: 02/22/25 Anesthesia Start Time: 07:15 Stop Date/Time Anesthesia Stop Date: 02/22/25 Anesthesia Stop Time: 09:07 Summary Extremes of Age - Over 70 or under 1: MDA Coding CPT Codes CPT Codes: ANESTH KNEE AREA SURGERY - 55023 ([id number]) QK - BOX LINING MACHINE OPERATOR 2-4 CNCRNT ANES PROC, QX - ACCOUNT GROUP SUPERVISOR SVC W/ MD MED DIRECTION, P3 - PATIENT W/SEVERE SYS DISEASE Additional Codes: Summary - Extremes of Age - Over 70 or under 1: MDA ([id number])
--- NOTE | 2025-02-22 11:13 | SUR.PHASEII ---
'cattle feeder here for post op phase of pt, also for discharge instructions which were gone over with pt and pt's . pt and stated they understood instructions
--- NOTE | 2025-02-22 12:42 | P.ANES_ITS ---
Anesthesia Charges Start Date/Time Anesthesia Start Date: 02/22/25 Anesthesia Start Time: 07:15 Stop Date/Time Anesthesia Stop Date: 02/22/25 Anesthesia Stop Time: 09:07 Summary Extremes of Age - Over 70 or under 1: GUT SNATCHER Coding CPT Codes CPT Codes: ANESTH KNEE AREA SURGERY - 20090 ([id number]) P3 - PATIENT W/SEVERE SYS DISEASE, QK - 2-4 CNCRNT ANES PROC, QX - GUT SNATCHER SVC W/ MD MED DIRECTION Additional Codes: Summary - Extremes of Age - Over 70 or under 1: GUT SNATCHER ([id number])
--- NOTE | 2025-02-22 12:42 | W.ANESCHARGE ---
Anesthesia Charges Start Date/Time Anesthesia Start Date: 02/22/25 Anesthesia Start Time: 07:15 Stop Date/Time Anesthesia Stop Date: 02/22/25 Anesthesia Stop Time: 09:07 Summary Extremes of Age - Over 70 or under 1: NEONATAL SURGEON Coding CPT Codes CPT Codes: ANESTH KNEE AREA SURGERY - 97278 ([id number]) P3 - PATIENT W/SEVERE SYS DISEASE, QK - COMMUNITY HEALTH NURSE STAFF 2-4 CNCRNT ANES PROC, QX - NEONATAL SURGEON SVC W/ MD MED DIRECTION Additional Codes: Summary - Extremes of Age - Over 70 or under 1: NEONATAL SURGEON ([id number])
== END 2025-02-22 11:16 | disposition home or self-care (01) ==
PROVIDERS: PCP Family Medicine; Visit Provider Orthopaedic Surgery
PROC: (CPT 27385; principal; 2025-02-22 07:15)
DX: S76.111A Strain of right quadriceps muscle, fascia and tendon, initial encounter (principal); G89.18 Other acute postprocedural pain
CPT/HCPCS: 27385; 01320; 64447; 76942; 82962; 99100; A9270; J0330; J0665; J0666; J0690; J2250; J2371; J2405; J2704; J3010; J7120